=== PATIENT | female | born 1995 | race Caucasian/White ===

== ENCOUNTER 2023-11-13 11:02 | Emergency (ER) | payer BC, SELFPAY ==
[2023-11-13 11:31] VITALS: BP 132/90; PULSE 85; RESP 18; TEMP 36.6; O2SAT 100; BMI 24.3
== END 2023-11-13 12:24 | disposition left against medical advice (07) ==
PROVIDERS: Emergency Provider Emergency Medicine
DX: Z53.21 Procedure and treatment not carried out due to patient leaving prior to being seen by health care provider (principal)

== ENCOUNTER 2024-12-01 18:25 | Emergency (ER) | payer BC, SELFPAY ==
--- OUTSIDE RECORDS SUMMARY | 2024-12-01 18:28 | XMS_ITS | Encounter Summary ---
Author Organization [facility] Address [address] [place] [address] Care Team Providers Care It Operations Analyst Name Role Phone Monika Escobar PA-C Primary Care Provider Davida Triana MD Unavailable [phone] Monika High PA-C Unavailable [phone] Monika Escobar PA-C Unavailable Chris Denise MD Unavailable [phone] Reason for Visit * Reason Onset Date Comments Panel Management 10/15/2024 Encounter Details Date Type Department Care Team (Late Contact Info) Description 10/15/2024 Telephone [facility] [address] [place] [address] Monika Escobar PA-C [address] [place] [address] Panel Management Social History Tobacco Use Types Packs/Day Years Used Date Smoking Tobacco: Never Smokeless Tobacco: Never Alcohol Use Standard Drinks/Week Comments Yes 0 (1 standard drink = 0.6 oz pur e alcohol) social, once per month PHQ-2 Answer Date Recorded PHQ-2 Score 1 01/04/2024 Adolescent Education Answer Date Record ed Getting School Help Needed Not on file 04/30 Comments No Sex and Gender Information Value Date Recorded Sex Assigned at Female 05/09/2021 12:24 PM CDT 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 Type of outreach: Sent [employer] message. Questions for provider review: None Teresa Tamayo MA Chart routed to None. documented in this encounter Plan of Treatment Not on file documented as of this encounter Visit Diagnoses Not on filedocumented in this encounter Additional Health Concerns Assessment Noted Time PHQ-9 Depression Total Score: 11 01/02/ 024 4:16 PM CDT documented as of this encounter Care Teams It Operations Analyst Relationship Specialty Start Date End Date Monika Escobar PA-C [address] [place] [address] PCP - General Family Medicine 05/30/21 Davida Triana MD [address] [place] [address] Referring Physician supply controller 06/15/21 Monika High PA-C [address] [place] [address] Physician Water Filter Cleaner Dermatology 06/15/21 Monika Escobar PA-C [address] [place] [address] Assigned PCP 05/20/21 Chris Denise MD [address] [address] Assigned OBGYN Provider 08/07/24 documented as of this encounter
--- OUTSIDE RECORDS SUMMARY | 2024-12-01 18:28 | XMS_ITS | Encounter Summary ---
Author Organization [facility] Address [address] [place] [address] Care Team Providers Care Gps Navigation Installer Name Role Phone Monika Escobar PA-C Primary Care Provider Davida Triana MD Unavailable [phone] Monika High PA-C Unavailable [phone] Monika Escobar PA-C Unavailable Davida Triana MD Unavailable [phone] Monika High PA-C Unavailable Kylie Liu MD Unavailable Chris Denise MD Unavailable [phone] Encounter Details Date Type Department Care Team (Late st Contact Info) Description 08/14/2022 MyC Medical Advice [facility] [address] [place] [address] Monika Escobar PA-C [address] [place] [address] Social History Tobacco Use Types Packs/Day Years Used Date Smoking Tobacco: Never Smokeless Tobacco: Never Alcohol Use Standard Drinks/Week Comments Yes 0 (1 standard drink = 0.6 oz pur e alcohol) social, once per month PHQ-2 Answer Date Recorded PHQ-2 Score 1 01/13/2022 Comments No Sex and Gender Information Value Date Recorded Sex Assigned at Female 05/09/2021 12:24 PM CDT Legal Sex Female 3:37 AM MOVE COORDINATOR Gender Identity Female 05/09/2021 12:24 PM CDT Sexual Orientation Straight 05/09/2021 12 :24 PM CDT documented as of this encounter Plan of Treatment Not on file documented as of this encounter Visit Diagnoses Not on filedocumented in this encounter Additional Health Concerns Assessment Noted Time PHQ-9 Depression Total Score: 6 01/14/20 22 8:43 AM CDT documented as of this encounter Care Teams Gps Navigation Installer Relationship Specialty Start Date End Date Monika Escobar PA-C [address] [place] [address] PCP - General Family Medicine 05/30/21 Davida Triana MD [address] [place], [place] [address] Referring Physician gui developer 06/15/21 Monika High PA-C [address] [place] [address] Physician Tow Truck Driver Dermatology 06/15/21 Monika Escobar PA-C [address] [place] [address] Assigned PCP 05/20/21 Davida Triana MD [address] [place], [place] [address] Assigned OBGYN Provider 06/19/2112/15/ 3 Monika High PA-C [address] [place] [address] Assigned Surgical Provider 09/18/21 Kylie Liu MD [address] [address] Assigned OBGYN Provider 03/07/24 Chris Denise MD [address] [address] Assigned OBGYN Provider 08/07/24 documented as of this encounter
--- OUTSIDE RECORDS SUMMARY | 2024-12-01 18:28 | XMS_ITS | Encounter Summary ---
Author Organization [facility] Address [address] [place] [address] Care Team Providers Care Assistant General Manager Name Role Phone Monika Escobar PA-C Primary Care Provider [phone] Davida Triana MD Unavailable [phone] Monika High PA-C Unavailable [phone] Monika Escobar PA-C Unavailable [phone] Davida Triana MD Unavailable [phone] Monika High PA-C Unavailable [phone] Kylie Liu MD Unavailable [phone] Chris Denise MD Unavailable [phone] Encounter Details Date Type Department Care Team (Late st Contact Info) Description 01/20/2022 MyC Medical Advice [address] [address] Laurie Maynard MA Social History Tobacco Use Types Packs/Day Years [...] PM CDT 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 No / Unsure 01/11/2022 10:47 AM CDT documented as of this encounter Plan of Treatment Not on file documented as of this encounter Visit Diagnoses Not on filedocumented in this encounter Additional Health Concerns Assessment Noted Time PHQ-9 Depression Total Score: 6 01/14/20 22 8:43 AM CDT documented as of this encounter Care Teams Assistant General Manager Relationship Specialty Start Date End Date Monika Escobar PA-C [address] [place] [address] PCP - General Family Medicine 05/30/21 Davida Triana MD [address] [place] [address] Referring Physician underwater hunter trapper 06/15/21 Monika High PA-C [address] [place] [address] Physician Air Brush Decorator Dermatology 06/15/21 Monika Escobar PA-C [address] [place] [address] Assigned PCP 05/20/21 Davida Triana MD [address] [place] [address] Assigned OBGYN Provider 06/19/21 6/2/2 3 Monika High PA-C [address] [place] [address] Assigned Surgical Provider 09/18/21 Kylie Liu MD [address] [address] Assigned OBGYN Provider 03/07/24 Chris Denise MD [address] [address] Assigned OBGYN Provider 08/07/24 documented as of this encounter
--- OUTSIDE RECORDS SUMMARY | 2024-12-01 18:28 | XMS_ITS | Encounter Summary ---
Author Organization [facility] Address [address] [place] [address] Care Team Providers Care Television Engineer Name Role Phone Monika Escobar PA-C Primary Care Provider Davida Triana MD Unavailable [phone] Monika High PA-C Unavailable [phone] Monika Escobar PA-C Unavailable [phone] Chris Denise MD Unavailable [phone] Encounter Details Date Type Department Care Team (Late st Contact Info) Description 10/15/2024 [facility] [address] [address] Teresa Tamayo MA Social History Tobacco Use Types Packs/Day [...] PM CDT 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 Sex Female 3:37 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 Gender Identity Female 05/09/2021 12:24 PM CDT Sexual Orientation Straight 05/09/2021 12 :24 PM CDT documented as of this encounter Plan of Treatment Not on file documented as of this encounter Visit Diagnoses Not on filedocumented in this encounter Additional Health Concerns Assessment Noted Time PHQ-9 Depression Total Score: 11 01/02/ 024 4:16 PM CDT documented as of this encounter Care Teams Television Engineer Relationship Specialty Start Date End Date Monika Escobar PA-C [address] [place] [address] PCP - General Family Medicine 05/30/21 Davida Triana MD [address] [place] [address] Referring Physician machine bobbin winder 06/15/21 Monika High PA-C [address] [place] [address] Physician Personal Counselor Dermatology 06/15/21 Monika Escobar PA-C [address] [place] [address] Assigned PCP 05/20/21 Chris Denise MD [address] [address] Assigned OBGYN Provider 08/07/24 documented as of this encounter
--- OUTSIDE RECORDS SUMMARY | 2024-12-01 18:28 | XMS_ITS | Encounter Summary ---
Author Organization [facility] Address [address] [place] [address] Care Team Providers Care Launch Manager Name Role Phone Monika Escobar PA-C Primary Care Provider [phone] Davida Triana MD Unavailable [phone] Monika High PA-C Unavailable Monika Escobar PA-C Unavailable Davida Triana MD Unavailable [phone] Monika High PA-C Unavailable Kylie Liu MD Unavailable Chris Denise MD Unavailable [phone] Reason for Visit * Reason Onset Date Comments Panel Management 01/20/2022 Encounter Details Date Type Department Care Team (Late st Contact Info) Description 01/20/2022 Telephone [facility] [address] [place] [address] Monika Escobar PA-C [address] [place] [address] Panel Management Social History Tobacco [...] PM CDT Legal Sex Female 3:37 AM BACK END ENGINEER Gender Identity Female 05/09/2021 12:24 PM CDT Sexual Orientation Straight 05/09/2021 12 :24 PM CDT COVID-19 Exposure Response Date Recorded In the last 10 days, have yo u been in contact with someone who was confirmed or suspected to have Coronavirus/COVID-19? No / Unsure 03/30/2023 8:49 AM CDT documented as of this encounter Miscellaneous Notes * Telephone Encounter - Laurie Maynard MA - 07/11/2022 9:04 AM BACK END ENGINEER Patient Quality Outreach Patient is due for the following: Asthma - ACT needed and AAP Cervical Cancer Screening - PAP Needed Physical Preventive Adult Physical, - never done Chlamydia Screening Topic Date Due ??? COVID-19 Vaccine (2 - Booster for Berhane series) 03/10/2021 ??? Flu Vaccine (1) 03/16/2022 Next Steps: Schedule a office visit for asthma Adult Preventative Type of outreach: Sent letter. Next Steps: Reach out within 90 days via Letter. Max number of attempts reached: Yes. Will try again in 90 days if patient still on fail list. Questions for provider review: None Laurie Maynard MA END ENGINEER * Telephone Encounter - Laurie Maynard MA - 02/22/2022 2:47 PM CDT Patient Quality Outreach Patient is due for the following: Asthma - ACT needed and AAP Cervical Cancer Screening - PAP Needed Physical Preventive Adult Physical, - Due after never done Chlamydia Screening Topic Date Due ??? COVID-19 Vaccine (2 - Booster for Berhane series) 03/10/2021 Next Steps: Schedule a office visit for asthma Adult Preventative Type of outreach: Sent letter. Next Steps: Reach out within 90 days via Letter. Max number of attempts reached: Yes. Will try again in 90 days if patient still on fail list. Questions for provider review: None Laurie Maynard MA * Telephone Encounter - Laurie Maynard MA - 01/20/2022 10:48 AM CDT Patient Quality Outreach Patient is due for the following: Asthma - ACT needed and AAP Cervical Cancer Screening - PAP Needed Physical - Due after never done Chlamydia Immunizations - Covid NEXT STEPS: Schedule a office visit for asthma yearly physical Type of outreach: Sent [employer] message. Questions for provider review: None Laurie Maynard MA documented in this encounter Plan of Treatment Not on file documented as of this encounter Visit Diagnoses Not on filedocumented in this encounter Additional Health Concerns Assessment Noted Time PHQ-9 Depression Total Score: 6 01/14/20 22 8:43 AM CDT documented as of this encounter Care Teams Launch Manager Relationship Specialty Start Date End Date Monika Escobar PA-C [address] [place] [address] PCP - General Family Medicine 05/30/21 Davida Triana MD [address] [place] [address] Referring Physician blueprint assembler 06/15/21 Monika High PA-C [address] [place] [address] Physician Keypunch Operator Dermatology 06/15/21 Monika Escobar PA-C [address] [place] [address] Assigned PCP 05/20/21 Davida Triana MD [address] [place] [address] Assigned OBGYN Provider 06/19/21 3 Monika High PA-C [address] [place] [address] Assigned Surgical Provider 09/18/21 Kylie Liu MD [address] [address] Assigned OBGYN Provider 03/07/24 Chris Denise MD [address] [address] Assigned OBGYN Provider 08/07/24 documented as of this encounter
--- OUTSIDE RECORDS SUMMARY | 2024-12-01 18:28 | XMS_ITS | Encounter Summary ---
Author Organization [facility] Address [address] [place] [address]. [place] [address] Care Team Providers Care Supervisor Drying Name Role Phone Monika Escobar PA-C Primary Care Provider [phone] Davida Triana MD Unavailable Monika High PA-C Unavailable Monika Escobar PA-C Unavailable [phone] Davida Triana MD Unavailable Monika High PA-C Unavailable Kylie Liu MD Unavailable Chris Denise MD Unavailable [phone] Reason for Visit * Reason Comments Medication Refill Encounter Details Date Type Department Care Team (Late st Contact Info) Description 05/03/2022 Refill [facility] [place] [address] [place] [id number] Davida Triana MD [address] [place] [address] Medication Refill Social History Tobacco Use Types Packs/Day Years [...] PM CDT 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 Jasmine Holcomb RN documented in this encounter Plan of Treatment Not on file documented as of this encounter Visit Diagnoses Diagnosis Acne, unspecified acne type PMS (premenstrual syndrome) Premenstrual tension syndromes documented in this encounter Additional Health Concerns Assessment Noted Time PHQ-9 Depression Total Score: 6 01/14/20 22 8:43 AM CDT documented as of this encounter Care Teams Supervisor Drying Relationship Specialty Start Date End Date Monika Escobar PA-C [address] [place] [address] PCP - General Family Medicine 05/30/21 Davida Triana MD [address] [place] [address] Referring Physician insurance sales professional 06/15/21 Monika High PA-C [address] [place] [address] Physician Planer Feeder Dermatology 06/15/21 Monika Escobar PA-C [address] [place] [address] Assigned PCP 05/20/21 Davida Triana MD [address] [place] [address] Assigned OBGYN Provider 06/19/2112/15/ 3 Monika High PA-C [address] [place] [address] Assigned Surgical Provider 09/18/21 Kylie Liu MD [address] [address] Assigned OBGYN Provider 03/07/24 Chris Denise MD [address] [address] Assigned OBGYN Provider 08/07/24 documented as of this encounter
--- OUTSIDE RECORDS SUMMARY | 2024-12-01 18:28 | XMS_ITS | Clinical Summary ---
Author Organization [facility] Address [address] [place] [address] Care Team Providers Care Vp Of Marketing Name Role Phone Monika Escobar PA-C Primary Care Provider Davida Triana MD Unavailable [phone] Monika High PA-C Unavailable [phone] Monika Escobar PA-C Unavailable [phone] Chris Denise MD Unavailable [phone] Allergies No known active allergies Medications SUMAtriptan (IMITREX STATDOSE) 6 MG/0.5ML pen injector kit Inject 6 mg Subcutaneous at onset of headache for migraine Active tretinoin (RETIN-A) 0.025 % external creamIndications: Acne vulgaris Apply a pea size to entire face QD 45 g 11 09/14/19 22 Active Additional Information Patient not taking.Reported on 08/04/2024 albuterol (PROAIR HFA/PROVENTIL HFA/VENTOLIN HFA) 108 (90 Base) MCG/ACT inhalerIndication s:Mild intermittent asthma without complication Inhale 2 puffs into the lungs every 6 hours 18 g 1 11/22/19 22 Active SUMAtriptan (IMITREX) 100 MG tablet Take 100 mg by mouth as needed 11/04/19 22 Active ampicillin (PRINCIPEN) 500 MG capsuleIndication s:Acne vulgaris 1 cap po bid 60 capsule 1 04/11/20 22 Active Additional Information Patient not taking.Reported on 08/04/2024 spironolactone (ALDACTONE) 50 MG tabletIndications :Acne vulgaris 1 tab po daily 90 tablet 3 04/11/20 22 Active Additional Information Patient not taking.Reported on 08/04/2024 AIMOVIG 140 MG/ML injection 11/14/19 23 Active ketoconazole (NIZORAL) 2 % external creamIndications: Rash and nonspecific skin eruption Apply topically daily Apply to affected areas on abdomen, back, and upper chest. Apply for 1-3 weeks, until lesions have resolved. 60 g 12/09/19 23 Active Additional Information Patient not taking.Reported on 08/04/2024 spironolactone (ALDACTONE) 100 MG tabletIndications :Acne vulgaris 1 tab po daily 90 tablet 1 12/21/19 23 Active Additional Information Patient not taking.Reported on 08/04/2024 albuterol (PROVENTIL) (2.5 MG/3ML) 0.083% neb solution Take 1 vial (2.5 mg) by nebulization every 6 hours as needed for shortness of breath or wheezing 75 mL 03/15/20 23 Active drospirenone-ethi nyl estradiol (VESTURA) 3-0.02 MG tabletIndications :Acne, unspecified acne type,PMS (premenstrual syndrome),Encount er for surveillance of contraceptive pills Take 1 tablet by mouth daily 84 tablet 3 01/04/20 24 Active FLUoxetine (PROZAC) 20 MG capsuleIndication s:ABHINAV (generalized anxiety disorder),Current mild episode of major depressive disorder without prior episode Take 3 capsules (60 mg) by mouth daily 270 capsule 1 01/04/20 24 Active fluconazole (DIFLUCAN) 150 MG tabletIndications :Yeast infection of the vagina Take 1 tablet now, and take 1 more tablet 3 days later. 2 tablet 08/05/19 25 Active Active Problems Problem Noted Date Diagnosed Date Chronic migraine without aura 01/23/2024 Intractable common migraine without aura 024 ABHINAV (generalized anxiety disorder) 07/18/2023 Papanicolaou smear of cervix with low grade squamous intraepithelial lesion (LGSIL) 12/15/2022 Overview (08/28/2024): 12/08/22 LSIL pap, 26 yo. Plan pap in 1 year. 02/19/24 LSIL pap at age 28. Plan colp due by 05/21/24 08/04/24 COLP- SHANNEN 1. ECC- neg. Plan cotest in 1 year due before 08/04/25 Current mild episode of jossy r depressive disorder without prior episode 11/21/2021 Migraine without aura and wi thout status migrainosus, not intractable 11/21/2021 Overview (12/08/2022): Follows with [facility] neurology Mild intermittent asthma without complication Encounters Date Type Department Care Team Description 10/15/2024 MyC Medical Advice [facility] [address] [place] [address] Teresa Tamayo MA 10/15/2024 Telephone [facility] [address] [place] [address] Monika Escobar, PANoaC Panel Management from Last 3 Months Immunizations Immunization Administration Dates Next Due COVID-19 Vaccine ([place]) 01/13/2021 DTAP (<7y) 12/12/2002, 9,07/07/1998,05/12,02/25/1998 HIB, Unspecified 12/22/1998, 8,05/07/1998,02/25 HPV Quadrivalent 11/20/2013,01/25/2012 Hepatitis A (Vaqta/Havrix)(P eds 12m-18y) 11/20/2013,01/25/2012 Hepatitis B, Peds (Engerix-B/Recombivax HB) 12/22/1998,05/12/1998,02/25/1998 Influenza (IIV3) PF 03/26/2009,06/25/2003 Influenza (prior to 2023) 07/18/2012,04/12/2011 Influenza Vaccine >6 months,quad, PF 04/09/2020, 08/04/2015,07/25/2013 MMR (MMRII) 12/12/2002,12/22/1998 Meningococcal ACWY (Menactra ) 03/03/2010 Meningococcal ACWY (Menveo ) 04/17/2014 Meningococcal B (Bexsero ) 08/04/2015 Poliovirus, inactivated (IPV) 12/12/2002 ,12/22/1998,05/12/1998,02/25 TD,PF 7+ (Tenivac) 08/04/2015 Typhoid IM 07/30/2015 Varicella (Varivax) 02/05/2008,12/22/1998 Family History Medical History Relation Comments Anxiety Disorder Brother Depression Brother Skin Cancer Maternal Grandmother Anxiety Disorder Mother Depression Mother Diabetes Mother Anxiety Disorder Sister Depression Sister Breast Cancer No family hx of Colon Cancer No family hx of Ovarian Cancer No family hx of Relation Status Comments Brother Father Alive Maternal Grandmother Mother Alive Sister Social History Tobacco Use Types Packs/Day Years Used Date Smoking Tobacco: Never Smokeless Tobacco: Never Tobacco Cessation:Counseling Given: No Alcohol Use Standard Drinks/Week Comments Yes 0 [...] PM CDT Legal Sex Female 3:37 AM CERTIFIED PHYSICAL THERAPIST ASSISTANT Gender Identity Female 05/09/2021 12:24 PM CDT Sexual Orientation Straight 05/09/2021 12 :24 PM CDT Last Filed Vital Signs Vital Sign Reading Time Taken Comments Blood Pressure 118/70 08/04/2024 1:55 PM CERTIFIED PHYSICAL THERAPIST ASSISTANT Pulse 107 11/11/2023 2:03 AM CDT Temperature 36.1 C (97 F) 11/10/2023 11:55 PM CDT Respiratory Rate 20 11/10/2023 11:55 PM CDT Oxygen Saturation 100% 11/11/2023 2:13 AM CDT Inhaled Oxygen Concentration - - Weight 70.4 kg (155 lb 4.8 oz) 08/04/2024 1:55 P M CERTIFIED PHYSICAL THERAPIST ASSISTANT Height 165.1 cm (5' 5) 02/19/2024 11:11 AM CDT Body Mass Index 25.84 02/19/2024 11:11 AM CDT Plan of Treatment Health Maintenance Due Date Last Done Comments ASTHMA ACTION PLAN 1997 DEPRESSION ACTION PLAN 1997 DTAP/TDAP/TD IMMUNIZATION (6 - Tdap) 08/05/2015 08/04/2015, 12/12/2002, 06/23/1999, Additional history exists HEPATITIS C SCREENING 12/19/2015 Pneumococcal Vaccine: Pediat rics (0 to 5 Years) and At-Risk Patients (6 to 49 Years) (1 of 2 - PCV) 2016 ANNUAL REVIEW OF HM ORDERS 08/21/2023 08/21/2022, COVID-19 Vaccine (2 - 2023-2 5 season) 2024 01/13/2021 ASTHMA CONTROL TEST 07/05/2024 01/04/2024, 12/08/2022, 08/21/2022 PHQ-9 07/05/2024 01/04/2024, 09/2023, 12/08/2022, Additional history exists DEPRESSION 12 MO INDEX REPEA T PHQ-9 11/03/2024 01/04/2024, 07/18/2023, 12/08/2022, Additional history exists YEARLY PREVENTIVE VISIT 02/18/2025 02/19/2024, 12/08 INFLUENZA VACCINE (Season Ended) 2025 04/09/2020, 08/04/2015, 07/25/2013, Additional history exists HPV FOLLOW-UP 08/04/2025 PAP FOLLOW-UP 08/04/2025 02/19/2024, 12/08/2022 ADVANCE CARE PLANNING 12/09/2027 12/08/2022 ZOSTER IMMUNIZATION (1 of 2) 12/19/2047 HEPATITIS B IMMUNIZATION Completed 999, 05/12/1998, 02/25/1998 HPV IMMUNIZATION Completed 11/20/2013, 01/25/2012 MENINGITIS IMMUNIZATION Completed 04/17/2014, 03/03 HIV SCREENING Completed 08/21/2022 CHLAMYDIA SCREENING Discontinued 02/19/2024, 08/21/2022, 08/21/2022 PAP Discontinued 02/19/2024, 12/08/2022 Procedures Procedure Name Priority Date/Time Associated Diagnosis Comments GYNECOLOGIC CYTOLOGY Routine 02/19/2024 11:50 AM CDT Papanicolaou smear of cervix with low grade squamous intraepithelial lesion (LGSIL) CHLAMYDIA TRACHOMATIS PCR Routine 02/19/2024 11:50 AM CDT Routine screening for STI (sexually transmitted infection) from Last 3 Months or Most Recently Relevant to Health Maintenance Results * (ABNORMAL) Pap Screen Reflex to HPV if ASCUS - Recommended Age 25 - 29 Years (02/19/2024 11:50 AM CDT) Interpretation Low-grade squamous intraepithelial lesion (LSIL) encompassing HPV/mild dysplasia/CIN1(A) 02/26/2024 10:55 AM CDT [facility] Comment Papanicolaou Test Limitations: Cervical cytology is a screening test with limited sensitivity, and regular screening is critical for cancer prevention. Pap tests are primarily effective for the diagnosis/prevent ion of squamous cell carcinoma, not adenocarcinoma or other cancers. 02/26/2024 10:55 AM CDT LABORATORY Specimen Adequacy Satisfactory for evaluation, endocervical/cash sformation zone component present 02/26/2024 10:55 AM CDT [facility] Clinical Information none 02/26/2024 10:55 AM CDT [facility] LMP/Menopause Date 02/15/2024 02/26/2024 10:55 AM CDT [facility] Reflex Testing Yes if ASCUS 02/26/20 24 10:55 AM CDT [facility] Previous Abnormal? No 02/26/2024 10:55 AM CDT [facility] Performing Labs The technical component of this testing was completed at [facility]. Stain controls for all stains resulted within this report have been reviewed and show appropriate reactivity. 02/26/2024 10:55 AM CDT [facility] Brushing ENDOCERVICAL STRUCTURE / Unknown Non-blood Collection / Unknown 02/19/2024 11:50 AM CDT 02/19/2024 11:53 AM CDT us Kylie Liu MD LAB - STEPHEN AP Final Res ult [facility] [address] Lab (1st floor, no room number) [place] [address], [facility] Specialty Lab [address] [facility], [address] [place] [address] * CHLAMYDIA TRACHOMATIS PCR (02/19/2024 11:50 AM CDT) Chlamydia trachomatis Negative Negative 02/20/2024 11:54 AM CDT [facility] Comment:A negative result by construction project assistant mediated amplification does not preclude the presence of C. trachomatis infection because results are dependent on proper and adequate collection, absence of inhibitors and sufficient rRNA to be detected. Swab CERVIX UTERI STRUCTURE / Unknown Non-blood Collection / Unknown 02/19/2024 11:50 AM CDT 02/19/2024 11:53 AM CDT Kylie Liu MD LAB - MICRO GENERAL ORDER MARIE Final Result [facility] Inf. Diseases Diag. Lab [address] [facility], [address] [place] [address], [facility] from Last 3 Months or Most Recently Relevant to Health Maintenance Insurance BLUE PLUS BLUE PLUS Care Teams Vp Of Marketing Relationship Specialty Start Date End Date Monika Escobar PA-C [address] [place], [place] [id number] PCP - General Family Medicine 05/30/21 Davida Triana MD [address] [place] [address] Referring Physician metal fabrication supervisor 06/15/21 Monika High PA-C [address] [place] [address] [id number] Physician Research Nutritionist Dermatology 06/15/21 Monika Escobar PA-C [address] [place], [place] [id number] Assigned PCP 05/20/21 Chris Denise MD [address] 289[address] Assigned OBGYN Provider 08/07/24
--- OUTSIDE RECORDS SUMMARY | 2024-12-01 18:28 | XMS_ITS | Encounter Summary ---
Author Organization [facility] Address [address] [place] [id number] Care Team Providers Care Maid Cleaning Cooking Name Role Phone Monika Escobar PA-C Primary Care Provider Davida Triana MD Unavailable [phone] Monika High PA-C Unavailable Monika Escobar PA-C Unavailable [phone] Monika High PA-C Unavailable Kylie Liu MD Unavailable [phone] Chris Denise MD Unavailable [phone] Reason for Visit * Reason Onset Date Comments Refill Request 12/20/2022 spironolactone ( ALDACTONE) 100 MG tablet Encounter Details Date Type Department Care Team (Late st Contact Info) Description 12/20/2022 Refill M [facility] [address] [address] Mnoika High PA-C [address] [place] [address] Refill Request (spironolactone (ALDACTONE) 100 MG tablet) Social History Tobacco Use Types Packs/Day Years Used Date Smoking Tobacco: Never Smokeless Tobacco: Never Alcohol Use Standard Drinks/Week Comments Yes 0 (1 standard drink = 0.6 oz pur e alcohol) social, once per month PHQ-2 Answer Date Recorded PHQ-2 Score 2 12/08/2022 Comments No Sex and Gender Information Value Date Recorded Sex Assigned at Female 05/09/2021 12:24 PM CDT Legal Sex Female 3:37 AM OFFLINE CUTTER Gender Identity Female 05/09/2021 12:24 PM CDT Sexual Orientation Straight 05/09/2021 12 :24 PM CDT COVID-19 Exposure Response Date Recorded In the last 10 days, have yo u been in contact with someone who was confirmed or suspected to have Coronavirus/COVID-19? No / Unsure 12/08/2022 8:12 AM CDT documented as of this encounter Miscellaneous Notes * Telephone Encounter - Monika Escobar PA-C - 12/20/2022 3:27 PM CDT Follows with dermatology, will send there. Monika Escobar PA-C documented in this encounter Plan of Treatment Not on file documented as of this encounter Visit Diagnoses Diagnosis Acne vulgaris Other acne documented in this encounter Additional Health Concerns Assessment Noted Time PHQ-9 Depression Total Score: 9 12/09/19 23 8:37 AM CDT documented as of this encounter Care Teams Maid Cleaning Cooking Relationship Specialty Start Date End Date Monika Escobar PA-C [address] [place] [address] PCP - General Family Medicine 05/30/21 Davida Triana MD [address] [address] Referring Physician apprenticeship consultant 06/15/21 Monika High PA-C [address] [place] [address] Physician Mechanical Meter Tester Dermatology 06/15/21 Monika Escobar PA-C [address] [place] [address] Assigned PCP 05/20/21 Monika High PA-C [address] [place] [address] Assigned Surgical Provider 09/18/21 Kylie Liu MD [address] [address] Assigned OBGYN Provider 03/07/24 Chris Denise MD [address] [address] Assigned OBGYN Provider 08/07/24 documented as of this encounter
--- OUTSIDE RECORDS SUMMARY | 2024-12-01 18:28 | XMS_ITS | Encounter Summary ---
Author Organization [facility] Address [address] [place] [address] Care Team Providers Care Cigarette Maker Name Role Phone Monika Escobar PA-C Primary Care Provider Davida Triana MD Unavailable [phone] Monika High PA-C Unavailable [phone] Monika Escobar PA-C Unavailable Kylie Liu MD Unavailable [phone] Chris Denise MD Unavailable [phone] Encounter Details Date Type Department Care Team (Late st Contact Info) Description 08/04/2024 MyC Medical Advice [facility] [place] [address] [place] [address] Chris Denise MD [address] [place] [address] Yeast infection of the vagina (Primary Dx) Social History Tobacco Use Types Packs/Day Years [...] PM CDT Legal Sex Female 3:37 AM FIELD SPEC Gender Identity Female 05/09/2021 12:24 PM CDT Sexual Orientation Straight 05/09/2021 12 :24 PM CDT documented as of this encounter Miscellaneous Notes * Telephone Encounter - Marly Nolan RN - 08/05/2024 1:17 PM CST Pt advised via my chart. Devika Nolan RN D SPEC * Telephone Encounter - Chris Denise MD - 08/05/2024 1:09 PM CST Advise Pt that I sent Rx Diflucan to her [facility] in [place]. If her sx's persist 1 week afterthe 2nd dose, then she will need an appt to see what is going on. D SPEC * Telephone Encounter - Marly Nolan RN - 08/05/2024 10:44 AM FIELD SPEC Please address the my chart message. Pt believes that she has a yeast infection. Finished monistat 7 day last Sunday and is still having sx. Pt was in for a colp yesterday. Please advise. Devika Nolan RN D SPEC documented in this encounter Plan of Treatment Not on file documented as of this encounter Visit Diagnoses Diagnosis Yeast infection of the vagina- Primary Candidiasis of vulva and vagina documented in this encounter Additional Health Concerns Assessment Noted Time PHQ-9 Depression Total Score: 11 01/02/ 024 4:16 PM CDT documented as of this encounter Care Teams Cigarette Maker Relationship Specialty Start Date End Date Monika Escobar PA-C [address] [place] [address] PCP - General Family Medicine 05/30/21 Davida Triana MD [address] [place] [address] Referring Physician manufacturing engineering director 06/15/21 Monika High PA-C [address] [place] [address] Physician Senior It Project Manager Dermatology 06/15/21 Monika Escobar PA-C [address] [place], [place] [phone] Assigned PCP 05/20/21 Kylie Liu MD [address] [address] Assigned OBGYN Provider 03/07/24 Chris Denise MD [address] [address] Assigned OBGYN Provider 08/07/24 documented as of this encounter
--- OUTSIDE RECORDS SUMMARY | 2024-12-01 18:28 | XMS_ITS | Encounter Summary ---
Author Organization [facility] Address [address] [place] [address] Care Team Providers Care Escort Patients Name Role Phone Monika Escobar PA-C Primary Care Provider [phone] Davida Triana MD Unavailable [phone] Monika High PA-C Unavailable [phone] Monika Escobar PA-C Unavailable [phone] Davida Triana MD Unavailable [phone] Monika High PA-C Unavailable [phone] Kylie Liu MD Unavailable Chris Denise MD Unavailable [phone] Encounter Details Date Type Department Care Team (Late st Contact Info) Description 01/13/2022 MyC Medical Advice [address] [address] Bernard Alaniz MA Social History Tobacco Use Types Packs/Day [...] PM CDT Legal Sex Female 3:37 AM ROLLER SKATER Gender Identity Female 05/09/2021 12:24 PM CDT [...] documented as of this encounter Care Teams Escort Patients Relationship Specialty Start Date End Date Monika Escobar PA-C [address] [place] [address] PCP - General Family Medicine 05/30/21 Davida Triana MD [address] [place] [address] Referring Physician geochemistry teacher 06/15/21 Monika High PA-C [address] [place] [address] Physician Allergist/Immunologist Dermatology 06/15/21 Monika Escobar PA-C [address] [place] [address] Assigned PCP 05/20/21 Davida Triana MD [address] [place] [address] Assigned OBGYN Provider 06/19/21 6/2/2 3 Monika High PA-C [address] [place] [address] Assigned Surgical Provider 09/18/21 Kylie Liu MD [address] [address] Assigned OBGYN Provider 03/07/24 Chris Denise MD [address] [address] Assigned OBGYN Provider 08/07/24 documented as of this encounter
--- OUTSIDE RECORDS SUMMARY | 2024-12-01 18:29 | XMS_ITS | Clinical Summary ---
Author Organization [facility] Address [address], [place] [address] Care Team Providers Care Security Installation Technician Name Role Phone Saray Reyes MD Primary Care Provider [phone] Source Comments You are receiving this document as you are listed as the primary care provider,follow-up provider, or the patient has been referred to you for consultation.This is in compliance with the Medicare and[facility] EHR Incentive Program,which states Providers who transition their patient to another setting of careor provider of care or refers their patient to another provider of care shouldprovide summary care record for each transition of care or referral. [employer] Allergies No known active allergies Medications fluoxetine (AKA PROZAC) 20 MG tabletIndicatio ns:MIKAYLA HARRIS Fri Jul 30, 2015 2:20 PM Received from: External Pharmacy Indications: PN: MIKAYLA HARRIS SunJul 30, 2015 2:20 PM Received from: External Pharmacy 5 07/13/2015 Active SUMAtriptan (IMITREX) 100 MG tablet 01/09/2021 Active gabapentin (NEURONTIN) 300 MG capsule TAKE 1 CAPSULE BY MOUTH 2 TIMES A DAY 11/02/2020 Active eletriptan (RELPAX) 40 MG tablet 1 TABLET BY MOUTH AT ONSET OF HEADACHE, MAY REPEAT NEEDED IN 2HRS, MAX 2TABS/DAY AND 10DAYS/MONTH 12/04/2020 Active cephalexin (KEFLEX) 500 MG capsule TAKE 1 CAPSULE BY MOUTH 3 TIMES DAILY FOR 10 DAYS. 01/10/2021 Active naproxen (NAPROSYN) 500 MG tablet TAKE 1 TAB BY MOUTH AT ONSET OF HEADACHE NEEDED, TAKE WITH TRIPTAN OR BY ITSELF, MAX OF 2 PER DAY 11/15/2020 Active Norelgestromin- Eth Estradiol (XULANE) 150-35 MCG/24HR patch APPLY 1 PATCH EVERY WEEK DIRECTED 11/16/2020 Active Active Problems No known active problems Immunizations Immunization Administration Dates Next Due 4vHPV (Gardasil) 11/20/2013,01/25/2012 DTaP 12/12/2002, 9,07/07/1998,1997,02/25/1998 HepA Ped/Adol (1-18 yrs) 11/20/2013,01/25/2012 HepB Ped/Adol (0-18 yrs) 12/22/1998,05/12/1998,0 02/25/1998 Hib, Unspecified Formulation 12/22/1998, 07/07/1998,05/07/1998,1997 IPV (Polio) 12/12/2002, 9,05/12/1998,1997 Influenza IIV4 (Quadrivalent ) 0.5mL (10898) 07/25/2013 MCV4 (Menactra) 03/03/2010 MCV4 Menveo 2m.+ (two vial) 04/17/2014 MMR 12/12/2002,12/22/1998 Typhoid (Typhim Vi, IM) 07/30/2015 Varicella 02/05/2008,12/22/1998 Social History Tobacco Use Types Packs/Day Years Used Date Smoking Tobacco: Never Smokeless Tobacco: Never Comments No Sex and Gender Information Value Date Recorded Sex Assigned at Not on file Legal Sex Female 4:30 PM MINING CAPTAIN Gender Identity Not on file Sexual Orientation Not on file Last Filed Vital Signs Vital Sign Reading Time Taken Comments Blood Pressure 125/86 01/15/2021 4:17 PM CDT Pulse 119 01/15/2021 4:17 PM CDT Temperature 36.7 C (98.1 F) 01/15/2021 4:17 PM CDT Respiratory Rate 16 01/15/2021 4:17 PM CDT Oxygen Saturation 98% 01/15/2021 4:17 PM CDT Inhaled Oxygen Concentration - - Weight - - Height - - Body Mass Index - - Plan of Treatment Health Maintenance Due Date Last Done Comments Cervical Cancer Screening Due 1997 Hep C Screening (Preventive Services) 1997 DTaP/Tdap/Td Vaccine (6 - Tdap) 2008 12/12/2002, 06/23/1999, 07/07/1998, Additional history exists HIV Screening (Preventive Services) 2013 Adult Preventive Visit 12/19/2015 COVID-19 Vaccine (2 season) 2024 01/13/2021 Influenza Vaccine (Season Ended) 2025 07/25/2013 Zoster/Shingles Vaccine (1 of 2) 12/19/2047 HepB Vaccine Completed 12/22/1998, 04/16, 02/25/1998 Hib Vaccine Completed 12/22/1998, 06/16, 05/07/1998, Additional history exists IPV (Polio) Vaccine Completed 12/12/2002, 12/22/1998, 05/12/1998, Additional history exists Varicella Vaccine Completed 02/05/2008, 12/22/1998 HPV Vaccine Completed 11/20/2013, 01/25/2012 HepA Vaccine Completed 11/20/2013, 01/25/2012 MCV4 Vaccine Completed 04/17/2014, 03/03/2010 Meningococcal B Vaccine Aged Out No l onger eligible based on patient's age to complete this topic Pneumococcal Vaccine Aged Out No long er eligible based on patient's age to complete this topic Insurance [place] [address] Care Teams Security Installation Technician Relationship Specialty [place] [id number] [address] [place] [address] PCP - General 07/22/15
--- OUTSIDE RECORDS SUMMARY | 2024-12-01 18:29 | XMS_ITS | Clinical Summary ---
Author Organization [facility] Address [address] [place] [id number] Care Team Providers Care Woods Manager Name Role Phone Unavailable Primary Care Provider Unavailabl e Allergies No known active allergies Medications FLUoxetine 20 mg tablet TK 1 T PO QD IN THE MORNING 0 Active metoclopramide HCl (REGLAN) 10 mg tablet 0 Active SUMAtriptan (IMITREX) 100 mg tablet 1 Active albuterol HFA (PRO-AIR; VENTOLIN; PROVENTIL) 90 mcg/actuation inhaler INHALE 2 PUFFS INTO THE LUNGS EVERY 6 HOURS 2 Active drospirenone-ethiny l estradioL (Vestura, 28,) 3-0.02 mg tablet Take 1 Tablet by mouth once daily. 2 Active Aimovig Autoinjector 140 mg/mL auto-injector 08/14/19 2 3 Active vit 28/iron fum/folic (multivitamin folic acid 1 mg)Indications:Blee ding in early (HC) Take 1 Tablet by mouth once daily. 30 Tablet 5 Active ondansetron 4 mg disintegrating tabletIndications:S AB (spontaneous ) (HC) Place 2 Tablets (8 mg) on the tongue every 8 hours if needed for Nausea/Vomit ing. 20 Tablet 5 Active Active Problems Problem Noted Date Diagnosed Date Chronic migraine without aura 01/23/2024 ABHINAV (generalized anxiety disorder) 07/18/2023 Papanicolaou smear of cervix with low grade squamous intraepithelial lesion (LGSIL) 12/15/2022 Overview (02/09/2024): 12/08/22 LSIL pap, 26 yo. Plan pap in 1 year. 12/15/2022 MyChart result note sent. 01/02/23 mychart not read. Call attempt. VM box full unable to leave message. Will try again. 01/03/23 advised by phone 12/11/23 appt - canceled 01/08/2024 Reminder MyChart 02/19/24 appt Mild intermittent asthma without complication Comments Yes Encounters Date Type Department Care Team Description 12/01/[address] [facility] [address] [place] [address] Milad Albrecht MD Abdominal Pain 11/28/2024 2:08 AM CDT - 11/28/2024 3:44 AM CDT Emergency [facility] [address] [place] [address] Jamar Olivier MD Early stage of (HC) (Primary Dx); Abdominal cramping Discharge Disposition: Home Self Care 11/28/2024 Travel 11/25/2024 7:51 PM CDT - 11/25/2024 8:45 PM CDT Emergency [facility] [address] [place] [address] Nirmal Ye PA Abdominal cramping (Primary Dx); Early stage of (HC); Left ovarian cyst Discharge Disposition: Home Self Care 11/25/2024 5:10 PM CDT Office Visit [facility] [address] [place] [address] Abdominal Pain/problem (Lower abdominal cramping today. No vaginal bleeding. Is about 6 weeks . ) 11/25/2024 Travel 11/12/2024 1:45 PM CDT Office Visit [facility] [address] [place] [address] Milad Albrecht MD Consult 11/12/2024 Travel 10/16/2024 7:50 AM CDT - 10/16/2024 11:59 PM CDT Hospital Encounter [facility] [address] [facility] [place] [address] , unspecified gestational age (HC) 10/16/[address] [facility] [address] [facility] [place] [address] Shruthi Corona, 10/16/[address] [facility] [address] [facility] [place] [address] Milad Albrecht MD Questions 10/16/[address] [facility] [address] [facility] [place] [address] Milad Albrecht MD Results 10/15/2024 Travel 10/14/2024 7:38 AM CDT - 10/14/2024 11:35 AM CDT Emergency [facility] [address] [facility] [place] [address] Xochitl An, Bleeding in early (HC) (Primary Dx); Threatened (HC) Discharge Disposition: Home Self Care 10/14/2024 Orders Only [address] [place] [address] Shruthi Corona, DO <No scans attached> 10/14/2024 Travel 10/09/2024 Travel from Last 3 Months Social History Tobacco Use Types Packs/Day Years Used Date Smoking Tobacco: Never Smokeless Tobacco: Never Social Connections Answer Date Recorded Do you often feel lonely or isolated from those around you? 0 11/12/2024 Financial Resource Strain Answer Date R ecorded Difficulty of Paying Living Expenses 3 11/12/2024 Difficulty of Paying Living Expenses Not on file 11/12/2024 Food Insecurity Answer Date Recorded Do you worry your food will run out before you are able to buy more? 1 11/12/2024 Transportation Needs Answer Date Record ed Does lack of transportation keep you from medica l appointments? 1 11/12/2024 Does lack of transportation keep you from work, meetings or getting things that you need? 1 11/12/2024 Housing Stability Answer Date Recorded What is your housing situation today? 1 11/12/2024 Interpersonal Safety Answer Date Record ed Are you being hit, kicked, p ushed or yelled at (see row info)? No 11/28/2024 Interpersonal Safety Abuse 12 - 18 Not on file 11/28/2024 Interpersonal Safety Ambulatory Vulnerability No t on file 11/28/2024 Utilities Answer Date Recorded Do you have trouble paying f or utilities (for example, heat, electricity, water, phone)? 1 11/12/2024 Comments Yes Sex and Gender Information Value Date Recorded Sex Assigned at Female 11/25/2024 5:25 PM CDT Legal Sex Female 5:32 PM MANAGER TRANSFER Gender Identity Female 11/25/2024 5:25 PM CDT Sexual Orientation Straight 11/25/2024 5: 25 PM CDT Obstetrics History Para Term AB IAB SAB Ectopic Multiple Livin g Live Births 2 Date Outcome GA Total Labor Labor/2nd/3rd Weight Sex Type Anes PTL Dana A1 A5 Name Clin Current Last Filed Vital Signs Vital Sign Reading Time Taken Comments Blood Pressure 137/85 11/28/2024 2:18 AM CDT Pulse 72 11/28/2024 2:18 AM CDT Temperature 36.9 C (98.5 F) 11/28/2024 2:18 AM CDT Respiratory Rate 20 11/28/2024 2:18 AM CDT Oxygen Saturation 99% 11/28/2024 2:18 AM CDT Inhaled Oxygen Concentration - - Weight 72.9 kg (160 lb 12.8 oz) 11/28/2024 2:14 AM CDT Height 165.1 cm (5' 5) 11/28/2024 2:14 AM CDT Body Mass Index 26.76 11/28/2024 2:14 AM CDT Plan of Treatment Upcoming Encounters Date Type Department Care Team (Late st Contact Info) Description 12/03/2024 3:00 PM CDT Office Visit [address] [phone] Mliad Albrecht MD [address] [place] [address] 12/05/2024 3:00 PM CDT Phone OB Encounter [facility] [address] [facility] [place] [phone] 01/02/2025 2:30 PM CDT OB Encounter [facility] [address] [facility] [place] [address] Chloe Shruthi Couch, DO [address] [facility] [place] [address] Health Maintenance Due Date Last Done Comments Tdap 2008 Depression screening for age 12+ 2009 HPV series for age 9-26 (1 - 3-dose series) 2012 Hepatitis C screening for ag e 18-79 12/19/2015 Tetanus booster 2017 Pap test for age 21-65 2018 BMI (ht and wt on same day) for age 18+ 08/21/2023 08/21/2022, 01/09/2021 COVID-19 vaccine series ( season) 2024 01/13/2021 Influenza Vaccine (Season Ended) 2025 RSV vaccine for adults or (1 - 1-dose 75+ series) 2072 HIV for age 15-65 Completed 08/21/2022 Pneumococcal series for age 6-49 Aged Out No longer eligible b ased on patient's age to complete this topic Procedures Procedure Name Priority Date/Time Associated Diagnosis Comments US OB 1ST TRI SINGLE TA AND TV STAT 11/28/2024 3:16 AM CDT HCG BETA QUANT, STAT 11/28/2024 2:42 AM CDT HEMOGLOBIN STAT 11/28/2024 2:42 AM CDT US OB 1ST TRI SINGLE TA AND TV STAT 11/25/2024 7:14 PM CDT RH(D) TYPE STAT 11/25/2024 5:58 PM CDT CBC WITH AUTO DIFFERENTIAL STAT 11/25/2024 5:58 PM CDT HCG BETA QUANT, STAT 11/25/2024 5:58 PM CDT BASIC METABOLIC PANEL STAT 11/25/2024 5:58 PM CDT CBC WITH AUTO DIFFERENTIAL STAT 11/25/2024 5:58 PM CDT URINALYSIS MICROSCOPIC STAT 11/25/2024 5:47 PM CDT URINE STAT 11/25/2024 5:47 PM CDT UA W/ SEDIMENT EXAM REFLEXED PER CRITERIA STAT 11/25/2024 5:47 PM CDT HCG BETA QUANT, Today 10/16/2024 8:18 AM CDT , unspecified gestational age (HC) GC CHLAMYDIA TRACH PROBE STAT 10/14/2024 11:10 AM CDT TRICHOMONAS, AVILA, AND BACTERIAL VAGINOSIS BY ROSSY STAT 10/14/2024 11:10 AM CDT US OB 1ST TRI SINGLE TA AND TV STAT 10/14/2024 9:51 AM CDT BEDSIDE US STUDY ARCHIVE Routine 10/14/2024 8:28 AM CDT HCG BETA QUANT, STAT 10/14/2024 8:25 AM CDT CBC W PLT NO DIFF STAT 10/14/2024 8:2 5 AM CDT URINALYSIS MICROSCOPIC STAT 10/14/2024 7:51 AM CDT UA W/ SEDIMENT EXAM REFLEXED PER CRITERIA STAT 10/14/2024 7:51 AM CDT LC HIV-1/O/2, 4TH GENERATION Routine 08/21/2022 4:20 PM MANAGER TRANSFER Screen for STD (sexually transmitted disease) from Last 3 Months or Most Recently Relevant to Health Maintenance Results * US OB 1ST TRI SINGLE TA AND TV (11/28/2024 3:16 AM CDT) Only the most recent of3 resultswithin the time period is included. Anatomical Region Laterality Modality Ultrasound 11/28/2024 3:28 AM CDT Impressions 11/28/2024 3:28 AM CDT No significant interval change. Early intrauterine gestational sac without yolk sac or pole visualized. Dictated by Lee Mcadams MD @ 11/28/2024 3:28:06 AM (Electronically Signed) Narrative 11/28/2024 3:28 AM CDT For Patients: As a result of the Cures Act, medical imaging exams and procedure reports are released immediately into your electronic medical record. You may view this report before your referring provider. If you have questions, please contact your health care provider. INDICATION: Abnormal bleeding. TECHNIQUE: Ultrasound OB pelvis transabdominal and transvaginal. Real-time payne-scale imaging of the pelvis was performed. COMPARISON: 11/25/2024. FINDINGS: There is an intrauterine gestational sac. No yolk sac is visualized. The mean gestational sac diameter measures 0.7 cm, corresponding to a gestational age of 5 weeks 2 days. The uterus is unremarkable. Again demonstrated left ovarian cyst. Right ovary is not visualized. There are no suspicious fluid collections noted in the cul-de-sac. Procedure Note Lee Mcadams MD - 11/28/2024 For Patients: As a result of the Cures Act, medical imagingexams and procedure reports are released immediately into your electronicmedical record. You may view this report before your referring provider.If you have questions, please contact your health care provider. INDICATION: Abnormal bleeding. TECHNIQUE: Ultrasound OB pelvis transabdominal and transvaginal. Real-time payne- scaleimaging of the pelvis was performed. COMPARISON: 11/25/2024. FINDINGS: There is an intrauterine gestational sac. No yolk sac is visualized. Themean gestational sac diameter measures 0.7 cm, corresponding to agestational age of 5 weeks 2 days. The uterus is unremarkable. Again demonstrated left ovarian cyst. Rightovary is not visualized. There are no suspicious fluid collections notedin the cul-de-sac. IMPRESSION: No significant interval change. Early intrauterine gestational sac withoutyolk sac or pole visualized. Dictated by Lee Mcadams MD @ 11/28/2024 3:28:06 AM (Electronically Signed) us Jamar Olivier MD US Final Result * HEMOGLOBIN (11/28/2024 2:42 AM CDT) Pathologist [facility] HEMOGLOBIN 13.5 12.0 - 16.0 g/dL 11/28/2024 3:00 AM CDT [facility] MCV 87 80 - 100 fL 11/28/2024 3:00 AM CDT [facility] Blood BLOOD SPECIMEN / Unknown Venipuncture / Unknown 11/28/2024 2:42 AM CDT 11/28/2024 2:58 AM CDT us Jamar Olivier MD HEMATOLOGY Final Result [facility] [address] [place] [address] * HCG BETA QUANT, (11/28/2024 2:42 AM CDT) Only the most recent of4 resultswithin the time period is included. HCG BETA QUANT,PREGNANC Y 9,226 mIU/mL 11/28/2024 3:28 AM CDT [facility] Blood BLOOD SPECIMEN / Unknown Venipuncture / Unknown 11/28/2024 2:42 AM CDT 11/28/2024 2:58 AM CDT Narrative [facility] - 11/28/2024 3:28 AM CDT Expected Value for Healthy Non- premenopausal women <5.3mIU/mL FOR GESTATIONAL ASSESSMENT-See Range Table Below Weeks of gestation hCG mIU/mL 3 weeks gestation (5.8 - 71.2) 4 weeks gestation (9.5 - 750) 5 weeks gestation (217 - 7138) 6 weeks gestation (158 - 31,795) 7 weeks gestation (3,697 - 163,563) 8 weeks gestation (32,065 - 149,571) 9 weeks gestation (63,803 - 151,410) 10 weeks gestation (46,509 - 186,977) 12 weeks gestation (27,832 - 210,612) 14 weeks gestation (13,950 - 62,530) 15 weeks gestation (12,039 - 70,971) 16 weeks gestation (9,040 - 56,451) 17 weeks gestation (8,175 - 55,868) 18 weeks gestation (8,099 - 58,176) Biotin supplements may cause clinically significant interference for this test assay. If interference is suspected, it is strongly recommended that biotin is discontinued for at least one week prior to retesting. us Jamar Olivier MD CHEMISTRY Final Result [facility] [address] [place] [address] * (ABNORMAL) CBC WITH AUTO DIFFERENTIAL (11/25/2024 5:58 PM CDT) WHITE BLOOD COUNT 9.0 4.5 - 11.0 thou/cu mm 11/25/2024 6:11 PM CDT [facility] RED BLOOD COUNT 4.45 4.00 - 5.20 mil/cu mm 11/25/2024 6:11 PM CDT [facility] HEMOGLOBIN 12.9 12.0 - 16.0 g/dL 11/25/2024 6:11 PM T [facility] HEMATOCRIT 38.4 33.0 - 51.0 % 11/25/2024 6:11 PM T [facility] MCV 86 80 - 100 fL 11/25/2024 6:11 PM CDT [facility] MCH 29.0 26.0 - 34.0 pg 11/25/2024 6:11 PM [facility] MCHC 33.6 32.0 - 36.0 g/dL 11/25/2024 6:11 PM [facility] RDW 12.8 11.5 - 15.5 % 11/25/2024 6:11 PM [facility] PLATELET COUNT 282 140 - 440 thou/cu mm 11/25/2024 6:11 PM [facility] MPV 10.6 6.5 - 11.0 fL 11/25/2024 6:11 PM [facility] % NEUT 52.3 % 11/25/2024 6:11 PM [facility] % LYMPH 40.5 % 11/25/2024 6:11 PM [facility] % MONO 6.7 % 11/25/2024 6:11 PM [facility] % EOS 0.3 % 11/25/2024 6:11 PM [facility] % BASO 0.2 % 11/25/2024 6:11 PM [facility] ABSOLUTE NEUTROPHILS 4.7 1.7 - 7.0 thou/cu mm 11/25/2024 6:11 PM [facility] ABSOLUTE LYMPHOCYTES 3.6(H) 0.9 - 2.9 thou/cu mm 11/25/2024 6:11 PM [facility] ABSOLUTE MONOCYTES 0.6 <0.9 thou/cu mm 11/25/2024 6:11 PM [facility] ABSOLUTE EOSINOPHILS 0.0 <0.5 thou/cu mm 11/25/2024 6:11 PM [facility] ABSOLUTE BASOPHILS 0.0 <0.3 thou/cu mm 11/25/2024 6:11 PM [facility] Blood BLOOD SPECIMEN / Unknown Venipuncture / Unknown 11/25/2024 5:58 PM CDT 11/25/2024 6:07 PM T us Nirmal ACUNA HEMATOLOGY Fin al Result [facility] [address] [place] [address] * RH(D) TYPE (11/25/2024 5:58 PM CDT) Pathologist [facility] RH(D) TYPE Negative 11/25/2024 6:23 PM CDT [facility] BLOOD BANK Blood BLOOD SPECIMEN / Unknown Venipuncture / Unknown 11/25/2024 5:58 PM CDT 11/25/2024 6:07 PM CDT Heath Bradley DO BLOOD BANK Final Resul t Performing Organization Address [facility] de Phone Number [facility] BLOOD BANK [address] [place] [address] * (ABNORMAL) BASIC METABOLIC PANEL (11/25/2024 5:58 PM CDT) Pathologist [facility] SODIUM 137 136 - 145 mmol/L 11/25/2024 6:43 PM [facility] POTASSIUM 3.2(L) 3.5 - 5.1 mmol/L 11/25/2024 6:43 PM [facility] CHLORIDE 101 98 - 107 mmol/L 11/25/2024 6:43 PM [facility] CO2,TOTAL 23 22 - 29 mmol/L 11/25/2024 6:43 PM [facility] ANION GAP 13 5 - 18 11/25/2024 6:43 PM [facility] GLUCOSE 87 70 - 99 mg/dL 11/25/2024 6:43 PM [facility] CALCIUM 9.2 8.8 - 10.4 mg/dL 11/25/2024 6:43 PM [facility] Comment: Reference ranges for this test were updated on 05/20/2024 to reflect our healthy population more accurately. Reference range changes are not retroactively applied to results, but previous results using the same methodology can be interpreted in the context of the new reference range. BUN 7 6 - 20 mg/dL 11/25/2024 6:43 PM [facility] CREATININE 0.52 0.50 - 0.90 mg/dL 11/25/2024 6:43 PM CDT [facility] BUN/CREAT RATIO 13 10 - 20 6:43 PM T [facility] eGFR >90 >90 mL/min/1. 73m2 11/25/2024 6:43 PM CDT [facility] Comment:As of 2021, eG FR is calculated by the CKD-EPI creatinine equation without race adjustment. eGFR can be influenced by muscle mass, exercise, and diet. The reported eGFR is an estimation only and is only applicable if the renal function is stable. Blood BLOOD SPECIMEN / Unknown Venipuncture / Unknown 11/25/2024 5:58 PM CDT 11/25/2024 6:07 PM CDT Nirmal ACUNA CHEMISTRY Fin al Result Performing Organization Address [facility] Co de Phone Number [facility] [address] [place] [address] * URINALYSIS MICROSCOPIC (11/25/2024 5:47 PM CDT) Only the most recent of2 resultswithin the time period is included. RBC None Seen 0-2, None Seen /HPF 11/25/2024 6:10 PM CDT [facility] WBC 0-2 0-2, 3-5, None Seen /HPF 11/25/2024 6:10 PM [facility] BACTERIA Few None Seen, Rare, Few Bacteria/ HPF 11/25/2024 6:10 PM CDT [facility] EPITHELIAL CELLS Few None Seen, Few Epi/HPF 11/25/2024 6:10 PM CDT [facility] Urine URINE SPECIMEN / Unknown Non-Blood / Unknown 11/25/2024 5:47 PM CDT 11/25/2024 5:58 PM CDT Nirmal ACUNA URINE Fin al Result Performing Organization Address [facility]/ZIP Co de Phone Number [facility] [address] [place] [address] * (ABNORMAL) UA W/ SEDIMENT EXAM REFLEXED PER CRITERIA (11/25/2024 5:47 PM CDT) Only the most recent of2 resultswithin the time period is included. COLOR Yellow Yellow Color 11/25/2024 6:04 PM [facility] CLARITY Clear Clear Clarity 11/25/2024 6:04 PM [facility] SPECIFIC GRAVITY,URINE 1.025 1.010, 1.015, 1.020, 1.025 11/25/2024 6:04 PM [facility] PH,URINE 6.5 6.0, 7.0, 8.0, 5.5, 6.5, 7.5, 8.5 11/25/2024 6:04 PM [facility] UROBILINOGEN, QUALITATIVE Normal Normal EU/dl 11/25/2024 6:04 PM [facility] PROTEIN, URINE Negative Negative mg/dL 11/25/2024 6:04 PM [facility] GLUCOSE, URINE Negative Negative mg/dL 11/25/2024 6:04 PM [facility] KETONES,URINE Negative Negative mg/dL 11/25/2024 6:04 PM [facility] BILIRUBIN,URI NE Negative Negative 11/25/2024 6:04 PM [facility] OCCULT BLOOD,URINE Small(A) Negative 11/25/2024 6:04 PM [facility] NITRITE Negative Negative 11/25/2024 6:04 PM [facility] LEUKOCYTE ESTERASE Negative Negative 11/25/2024 6:04 PM [facility] Urine URINE SPECIMEN / Unknown Non-Blood / Unknown 11/25/2024 5:47 PM CDT 11/25/2024 5:58 PM CDT us Nirmal Ye PA URINE Fin al Result [facility] [address] [place] [address] * (ABNORMAL) URINE (11/25/2024 5:47 PM CDT) ,URIN E Positive(P ositive) Negative 11/25/2024 6:04 PM CDT [facility] Comment:Is Rh typing necessa ry? Urine URINE SPECIMEN / Unknown Non-Blood / Unknown 11/25/2024 5:47 PM CDT 11/25/2024 5:58 PM CDT us Nirmal Ye PA URINE Fin al Result [facility] [address] [place] [address] * TRICHOMONAS, AVILA, AND BACTERIAL VAGINOSIS BY ROSSY (10/14/2024 11:10 AM CDT) AVILA SPECIES Negative Negative 12:53 PM CDT [facility] AVILA GLABRATA Negative Negative 10/15/2024 12:53 PM CDT [facility] TRICHOMONAS VVA Negative Negative 12:53 PM CDT [facility] BACTERIAL VAGINOSIS Negative Negative 10/15/2024 12:53 PM CDT [facility] Other VAGINAL SWAB / Unknown Non-Blood / Unknown 10/14/2024 11:10 AM CDT 10/14/2024 11:15 AM CDT us Xochitl An DO MICROBIOLOGY Final Res ult [facility] [address] [place] [address], [place] * GC CHLAMYDIA TRACH PROBE (10/14/2024 11:10 AM CDT) CHLAMYDIA PROBE Negative 1:11 PM CDT [facility] N GONORRHOEAE PROBE Negative 10/15/2024 1:11 PM CDT [facility] Other ENDOCERVICAL CYTOLOGIC MATERIAL / Unknown Non-Blood / Unknown 10/14/2024 11:10 AM CDT 10/14/2024 11:15 AM CDT us Xochitl An DO MICROBIOLOGY Final Res ult [facility] [address] [place] [address], * CBC W PLT NO DIFF (10/14/2024 8:25 AM CDT) WHITE BLOOD COUNT 4.9 4.5 - 11.0 thou/cu mm 10/14/2024 8:34 AM [facility] RED BLOOD COUNT 4.93 4.00 - 5.20 mil/cu mm 10/14/2024 8:34 AM [facility] HEMOGLOBIN 14.1 12.0 - 16.0 g/dL 10/14/2024 8:34 AM [facility] HEMATOCRIT 43.3 33.0 - 51.0 % 10/14/2024 8:34 AM [facility] MCV 88 80 - 100 fL 10/14/2024 8:34 AM [facility] MCH 28.6 26.0 - 34.0 pg 10/14/2024 8:34 AM [facility] MCHC 32.6 32.0 - 36.0 g/dL 10/14/2024 8:34 AM [facility] RDW 13.1 11.5 - 15.5 % 10/14/2024 8:34 AM [facility] PLATELET COUNT 238 140 - 440 thou/cu mm 10/14/2024 8:34 AM [facility] MPV 10.5 6.5 - 11.0 fL 10/14/2024 8:34 AM [facility] Blood BLOOD SPECIMEN / Unknown Butterfly / Unknown 10/14/2024 8:25 AM CDT 10/14/2024 8:30 AM CDT us Xochitl Stoutvianney DO HEMATOLOGY Final Res ult [facility] [address] [facility] [place] [address] * LC HIV-1/O/2, 4TH GENERATION (08/21/2022 4:20 PM MANAGER TRANSFER) [facility] HIV Scr 4th Gen Non Reactive Non Reactive 08/23/2022 2:08 PM MANAGER TRANSFER [facility] Comment: HIV Negative HIV-1/HIV-2 antibodies and HIV-1 p24 antigen were NOT detected. There is no laboratory evidence of HIV infection. Blood BLOOD SPECIMEN / Unknown Venipuncture / Unknown 08/21/2022 4:20 PM MANAGER TRANSFER 08/21/2022 4:24 PM MANAGER TRANSFER Narrative [facility] - 08/23/2022 2:08 PM MANAGER TRANSFER Performed at: [address] [place] [id number] Carry All Driver: Gopal Lassiter MD, Phone: [phone] us Karly Stovall [facility] Final Res ult [facility] ([facility]) [address] [place] [address], from Last 3 Months or Most Recently Relevant to Health Maintenance Insurance [facility] [employer]
--- OUTSIDE RECORDS SUMMARY | 2024-12-01 18:29 | XMS_ITS | Encounter Summary ---
Author Organization [facility] Address [address] [place] [address] Care Team Providers Care Credit Card Clerk Name Role Phone No Ref-Primary, Physician Primary Care Provider [facility] Primary Ca re Provider Monika Escobar PA-C Primary Care Provider [phone] Davida Triana MD Unavailable [phone] Monika High PA-C Unavailable [phone] Monika Escobar PA-C Unavailable [phone] Davida Triana MD Unavailable [phone] Monika High PA-C Unavailable [phone] Kylie Liu MD Unavailable [phone] Chris Denise MD Unavailable [phone] Encounter Details Date Type Department Care Team (Late st Contact Info) Description 04/25/2021 Documentation Only INTERFACED REPORT Unknown, Provider Social History Tobacco Use Types Packs/Day Years Used Date Smoking Tobacco: Never Assessed PHQ-2 Answer Date Recorded PHQ-2 Score 1 01/04/2024 Adolescent Education Answer Date Record ed Getting School Help Needed Not on file 04/30 Comments No Sex and Gender Information Value Date Recorded Sex Assigned at Female 05/09/2021 12:24 PM CDT Legal Sex Female 3:37 AM AT HOME INDEPENDENT CALL CENTER AGENT Gender Identity Female 05/09/2021 12:24 PM CDT [...] filedocumented in this encounter Additional Health Concerns Infection Onset Date Last Indicated Resolved Time Rule Out COVID-19 08/18/2021 08/18/2021 08/19/2021 2:32 AM AT HOME INDEPENDENT CALL CENTER AGENT Rule Out COVID-19 11/09/2021 11/09/2021 11/10/2021 12:00 PM CDT documented as of this encounter Care Teams Credit Card Clerk Relationship Specialty Start Date End Date No Ref-Primary, Physician PCP - General 06/06/20 05/26/21 [facility] - [address] [address] PCP - General 05/27/21 05/29/21 Monika Escobar PA-C [address] [place] [address] PCP - General Family Medicine 05/30/21 Davida Triana MD [facility] [place] [address] Referring Physician basket grader 06/15/21 Monika High PA-C [address] [place] [address] Physician Dry Starch Operator Dermatology 06/15/21 Monika Escobar PA-C [address] [place] [address] Assigned PCP 05/20/21 Davida Triana MD [address] [place] [address] Assigned OBGYN Provider 06/19/21 3 Monika High, PA-C [address] [place] [address] Assigned Surgical Provider 09/18/21 Kylie Liu MD [address] [address] Assigned OBGYN Provider 03/07/24 Chris Denise MD [address] [address] Assigned OBGYN Provider 08/07/24 documented as of this encounter
--- OUTSIDE RECORDS SUMMARY | 2024-12-01 18:29 | XMS_ITS | Encounter Summary ---
Author Organization [facility] Address [address] [place] [address] Care Team Providers Care Drug Room Clerk Name Role Phone Monika Escobar PA-C Primary Care Provider [phone] Davida Triana MD Unavailable [phone] Monika High PA-C Unavailable [phone] Monika Escobar PA-C Unavailable [phone] Monika High PA-C Unavailable [phone] Kylie Liu MD Unavailable [phone] Chris Denise MD Unavailable [phone] Encounter Details Date Type Department Care Team (Late st Contact Info) Description 07/05/2023 [facility] [address] [address] Lita Wilson Social History Tobacco Use Types Packs/Day Years Used Date Smoking Tobacco: Never Smokeless Tobacco: Never Alcohol Use Standard Drinks/Week Comments Yes 0 (1 standard drink = 0.6 oz pur e alcohol) social, once per month PHQ-2 Answer Date Recorded PHQ-2 Score 2 12/08/2022 Adolescent Education Answer Date Record ed Getting School Help Needed Not on file 04/30 Comments No Sex and Gender Information Value Date Recorded Sex Assigned at Female 05/09/2021 12:24 PM CDT 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 Gender Identity Female 05/09/2021 12:24 PM CDT Sexual Orientation Straight 05/09/2021 12 :24 PM CDT documented as of this encounter Plan of Treatment Not on file documented as of this encounter Visit Diagnoses Not on filedocumented in this encounter Additional Health Concerns Assessment Noted Time PHQ-9 Depression Total Score: 9 12/09/19 23 8:37 AM CDT documented as of this encounter Care Teams Drug Room Clerk Relationship Specialty Start Date End Date Monika Escobar PA-C [address] [place] [address] PCP - General Family Medicine 05/30/21 Davida Triana MD [address] [address] Referring Physician top edge beveler 06/15/21 Monika High PA-C [address] [place] [address] Physician Point Of Sale Associate Dermatology 06/15/21 Monika Escobar PA-C [address] [place] [address] Assigned PCP 05/20/21 Monika High PA-C [address] [place] [address] Assigned Surgical Provider 09/18/21 Kylie Liu MD [address] [address] Assigned OBGYN Provider 03/07/24 Chris Denise MD [address] [place] [address] Assigned OBGYN Provider 08/07/24 documented as of this encounter
--- OUTSIDE RECORDS SUMMARY | 2024-12-01 18:29 | XMS_ITS | Encounter Summary ---
Author Organization [facility] Address [address] [place] [address] Care Team Providers Care Slot Shift Supervisor Name Role Phone Monika Escobar PA-C Primary Care Provider Davida Triana MD Unavailable [phone] Monika High PA-C Unavailable [phone] Monika Escobar PA-C Unavailable [phone] Davida Triana MD Unavailable [phone] Monika High PA-C Unavailable [phone] Kylie Liu MD Unavailable Chris Denise MD Unavailable [phone] Encounter Details Date Type Department Care Team (Late st Contact Info) Description 08/18/2021 Documentation Only INTERFACED REPORT Unknown, Provider Social [...] PM CDT 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 Gender Identity Female 05/09/2021 12:24 PM CDT [...] Out COVID-19 08/18/2021 08/18/2021 08/19/2021 2:32 AM GLASS INSTALLER Rule Out COVID-19 11/09/2021 11/09/2021 11/10/2021 12:00 PM CDT Assessment Noted Time PHQ-9 Depression Total Score: 4 05/31/20 21 7:30 AM GLASS INSTALLER documented as of this encounter Care Teams Slot Shift Supervisor Relationship Specialty Start Date End Date Monika Escobar PA-C [address] [place] [address] PCP - General Family Medicine 05/30/21 Davida Triana MD [address] [place], [place] [address] Referring Physician railroad baggage porter 06/15/21 Monika High PA-C [address] [place] [address] Physician Heel Wheeler Dermatology 06/15/21 Monika Escobar PA-C [address] [place] [address] Assigned PCP 05/20/21 Davida Triana MD [address] [place] [address] Assigned OBGYN Provider 06/19/21 3 Monika High PA-C [address] [place] [address] Assigned Surgical Provider 09/18/21 Kylie Liu MD [address] [address] Assigned OBGYN Provider 03/07/24 Chris Denise MD [address] [address] Assigned OBGYN Provider 08/07/24 documented as of this encounter
--- OUTSIDE RECORDS SUMMARY | 2024-12-01 18:29 | XMS_ITS | Encounter Summary ---
Author Organization [facility] Address [address] [place] [address] Care Team Providers Care Sr. Media Manager Name Role Phone Monika Escobar PA-C Primary Care Provider Davida Triana MD Unavailable [phone] Monika High PA-C Unavailable [phone] Monika Escobar PA-C Unavailable [phone] Davida Triana MD Unavailable [phone] Monika High PA-C Unavailable [phone] Kylie Liu MD Unavailable [phone] Chris Denise MD Unavailable [phone] Encounter Details Date Type Department Care Team (Latest Contact Info) Description 11/23/2021 [facility] Medical Advice [address] [address] Taniya Holman, RN Acne vulgaris (Primary Dx) Social History Tobacco Use Types Packs/Day Years Used Date Smoking Tobacco: Never Smokeless Tobacco: Never Alcohol Use Standard Drinks/Week Comments Yes 0 (1 standard drink = 0.6 oz pur e alcohol) social, once per month PHQ-2 Answer Date Recorded PHQ-2 Total Score (Adult) - Positive if 3 or more points; Administer PHQ-9 if positive 0 11/09/2021 Comments No Sex and Gender Information Value Date Recorded Sex Assigned at Female 05/09/2021 12:24 PM CDT 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 No / Unsure 11/09/2021 10:13 AM CDT documented as of this encounter Miscellaneous Notes * Telephone Encounter - Antonina Delacruz RN - 11/24/2021 3:00 PM CDT Pt notified of Monika sending doxycycline rx to the pharmacy. Antonina Castro RN [facility] [place] [phone] * Telephone Encounter - Monika High PA-C - 11/24/2021 1:38 PM CDT Sent to pharmacy, please notify patient. documented in this encounter Plan of Treatment Not on file documented as of this encounter Visit Diagnoses Diagnosis Acne vulgaris- Primary Other acne documented in this encounter Additional Health Concerns Assessment Noted Time PHQ-9 Depression Total Score: 3 11/11/19 22 7:02 AM CDT documented as of this encounter Care Teams Sr. Media Manager Relationship Specialty Start Date End Date Monika Escobar PA-C [address] [place] [address] PCP - General Family Medicine 05/30/21 Davida Triana MD [address] [place] [address] Referring Physician recovery unit operator 06/15/21 Monika High PA-C [address] [place] [address] Physician Print And Pattern Designer Dermatology 06/15/21 Monika Escobar PA-C [address] [place] [address] Assigned PCP 05/20/21 Davida Triana MD [address] [place] [address] Assigned OBGYN Provider 06/19/21 3 Monika High PA-C [address] [place] [address] Assigned Surgical Provider 09/18/21 Kylie Liu MD [address] [address] Assigned OBGYN Provider 03/07/24 Chris Denise MD [address] [address] Assigned OBGYN Provider 08/07/24 documented as of this encounter
--- OUTSIDE RECORDS SUMMARY | 2024-12-01 18:29 | XMS_ITS | Encounter Summary ---
Author Organization [facility] Address [address] [place] [address] Care Team Providers Care Booking Manager Name Role Phone Monika Escobar PA-C Primary Care Provider [phone] Davida Triana MD Unavailable [phone] Monika High PA-C Unavailable Monika Escobar PA-C Unavailable [phone] Davida Triana MD Unavailable [phone] Monika High PA-C Unavailable Kylie Liu MD Unavailable Chris Denise MD Unavailable [phone] Encounter Details Date Type Department Care Team (Late st Contact Info) Description 08/22/2021 My[facility] Medical Advice [facility] [address] [address] Monika High PA-C [address] [place] [address] Social History Tobacco Use Types Packs/Day Years Used Date Smoking Tobacco: Never Smokeless Tobacco: Never Alcohol Use Standard Drinks/Week Comments Yes 0 (1 standard drink = 0.6 oz pur e alcohol) social, once per month PHQ-2 Answer Date Recorded PHQ-2 Total Score (Adult) - Positive if 3 or more points; Administer PHQ-9 if positive 1 05/30/2021 Comments No Sex and Gender Information Value Date Recorded Sex Assigned at Female 05/09/2021 12:24 PM CDT 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 Yes 08/18/2021 3:15 PM TOWER EXCAVATOR OPERATOR documented as of this encounter Plan of Treatment Not on file documented as of this encounter Visit Diagnoses Not on filedocumented in this encounter Additional Health Concerns Infection Onset Date Last Indicated Resolved Time Rule Out COVID-19 11/09/2021 11/09/2021 11/10/2021 12:00 PM CDT Assessment Noted Time PHQ-9 Depression Total Score: 4 05/31/20 21 7:30 AM TOWER EXCAVATOR OPERATOR documented as of this encounter Care Teams Booking Manager Relationship Specialty Start Date End Date Monika Escobar PA-C [address] [place] [address] PCP - General Family Medicine 05/30/21 Davida Triana MD [address] [place] [address] Referring Physician mineralogy professor 06/15/21 Monika High PA-C [address] [place] [address] Physician Business Management Specialist Dermatology 06/15/21 Monika Escobar PA-C [address] [place] [address] Assigned PCP 05/20/21 Davida Triana MD [address] [place] [address] Assigned OBGYN Provider 06/19/21 3 Monika High PA-C [address] [place] [address] Assigned Surgical Provider 09/18/21 Kylie Liu MD [address] [address] Assigned OBGYN Provider 03/07/24 Chris Denise MD [address] [address] Assigned OBGYN Provider 08/07/24 documented as of this encounter
--- OUTSIDE RECORDS SUMMARY | 2024-12-01 18:29 | XMS_ITS | Patient Health Record ---
Author Organization [facility] Address [address] [address] Care Team Providers Care Proc Tech Name Role Phone CARROLL BROCK Unavailable [phone] Maria Eugenia IZAGUIRRE, Hien Unavailable Reason For Referral No Information Plan Of Treatment No Information Insurance Providers Payer Name Payer Address Payer Phone Subscriber Number Group Number Insured Name Patient Relationship to Insured Coverage Start Date Coverage End Date [facility] [address] [address] [place], [place] [id number] Olayinka Cole [facility] Child - Insured has Financial Responsibility
--- OUTSIDE RECORDS SUMMARY | 2024-12-01 18:29 | XMS_ITS | Encounter Summary ---
Author Organization [facility] Address [address] [place] [address] Care Team Providers Care Vice Investigator Name Role Phone Monika Escobar PA-C Primary Care Provider [phone] Davida Triana MD Unavailable Monika High PA-C Unavailable Monika Escobar PA-C Unavailable [phone] Davida Triana MD Unavailable [phone] Monika High PA-C Unavailable Kylie Liu MD Unavailable Chris Denise MD Unavailable [phone] Reason for Visit * Reason Onset Date Comments Refill Request 11/08/2021 doxycycline mono hydrate (MONODOX) 100 MG capsule Encounter Details Date Type Department Care Team (Late st Contact Info) Description 11/08/2021 Refill [facility] [address] [address] Monika High PA-C [address] [place], [place] [address] Refill Request (doxycycline monohydrate (MONODOX) 100 MG capsule) Social History Tobacco Use Types Packs/Day Years [...] PM CDT 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 No / Unsure 11/09/2021 10:13 AM CDT documented as of this encounter Miscellaneous Notes * Telephone Encounter - Monika High PA-C - 11/08/2021 3:26 PM CDT I only wanted her on this for 2 months. Was this automated? Please have her stop if possible * Telephone Encounter - Monika Escobar PA-C - 11/08/2021 2:47 PM CDT She is following with dermatology. Will send to them. Monika Escobar PA-C * Telephone Encounter - Shira Crenshaw RN - 11/08/2021 2:26 PM CDT Routing to PCP documented in this encounter Plan of Treatment Not on file documented as of this encounter Visit Diagnoses Diagnosis Acne vulgaris Other acne documented in this encounter Additional Health Concerns Infection Onset Date Last Indicated Resolved Time Rule Out COVID-19 11/09/2021 11/09/2021 11/10/2021 12:00 PM CDT Assessment Noted Time PHQ-9 Depression Total Score: 4 05/31/20 21 7:30 AM COMMISSIONER OF OFFICIALS documented as of this encounter Care Teams Vice Investigator Relationship Specialty Start Date End Date Monika Escobar PA-C [address] [place] [address] PCP - General Family Medicine 05/30/21 Davida Triana MD [address] [place] [address] Referring Physician manager dental 06/15/21 Monika High PA-C [address] [place] [address] Physician Cold Mill Operator Dermatology 06/15/21 Monika Escobar PA-C [address] [place] [address] Assigned PCP 05/20/21 Davida Triana MD [address] [place] [address] Assigned OBGYN Provider 06/19/21 3 Monika High PA-C [address] [place] [address] Assigned Surgical Provider 09/18/21 Kylie Liu MD [address] [address] Assigned OBGYN Provider 03/07/24 Chris Denise MD [address] [facility] [address] [place] [address] Assigned OBGYN Provider 08/07/24 documented as of this encounter
--- OUTSIDE RECORDS SUMMARY | 2024-12-01 18:29 | XMS_ITS | Encounter Summary ---
Author Organization [facility] Address [address] [place] [address] Care Team Providers Care Glue Spreader Name Role Phone Monika Escobar PA-C Primary Care Provider Davida Triana MD Unavailable [phone] Monika High PA-C Unavailable [phone] Monika Escobar PA-C Unavailable [phone] Davida Triana MD Unavailable [phone] Monika High PA-C Unavailable [phone] Kylie Liu MD Unavailable [phone] Chris Denise MD Unavailable [phone] Encounter Details Date Type Department Care Team (Late st Contact Info) Description 01/03/2022 My[facility] Medical Advice [address] [address] Taniya Holman, RN Social History Tobacco Use Types Packs/Day Years [...] PM CDT 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 Gender Identity Female 05/09/2021 12:24 PM CDT Sexual Orientation Straight 05/09/2021 12 :24 PM CDT documented as of this encounter Plan of Treatment Not on file documented as of this encounter Visit Diagnoses Not on filedocumented in this encounter Additional Health Concerns Assessment Noted Time PHQ-9 Depression Total Score: 3 11/11/19 22 7:02 AM CDT documented as of this encounter Care Teams Glue Spreader Relationship Specialty Start Date End Date Monika Escobar PA-C [address] [place] [address] PCP - General Family Medicine 05/30/21 Davida Triana MD [address] [place], [place] [address] Referring Physician casino gaming inspector 06/15/21 Monika High PA-C [address] [place] [address] Physician Paper Processing Machine Helper Dermatology 06/15/21 Monika Escobar PA-C [address] [place] [address] Assigned PCP 05/20/21 Davida Triana MD [address] [place] [address] Assigned OBGYN Provider 06/19/21 3 Monika High PA-C [address] [place] [address] Assigned Surgical Provider 09/18/21 Kylie Liu MD [address], [address] [address] Assigned OBGYN Provider 03/07/24 Chris Denise MD [address] [address] Assigned OBGYN Provider 08/07/24 documented as of this encounter
[2024-12-01 18:32] VITALS: BP 125/82; PULSE 75; RESP 16; TEMP 36.6; O2SAT 98; BMI 26.5
--- NOTE | 2024-12-01 19:45 | ED.GENADULT ---
HPI - General Adult General Date Seen: 12/01/24 Chief complaint: OB/Uterine Contractions Stated complaint: 5-7 weeks Pregent and cramping Time Seen by Provider: 12/01/24 19:24 History of Present Illness HPI narrative: Patient is a 28-year-old young woman here for evaluation of abdominal cramping. She is generally cared for in the [place] system. She was seen in the [place] ER on October 14 and diagnosed with a miscarriage. She was followed in their clinic subsequently and had Cytotec and then had a follow-up appointment with OB Gyne on November 12. A point of care ultrasound at that time demonstrated a normal uterus and endometrium. She presented to the [place] ER on November 25 complaining of abdominal cramping. At that time her HCG was 4000, up from 1000 in clinic on November 12. She had an ultrasound at that time that showed a possible early intrauterine gestational sac but no yolk sac or pole, she had a 2 cm simple cyst adjacent to the left ovary possibly a paraovarian cyst. There were no parts seen in that structure and no other suspicious adnexal masses. She was discharged home with recommended OB follow up, Ob Gyne was consulted at that visit. She return to the ER on November 28 reporting ongoing severe cramping. At that time she had a repeat HCG which was up to 9226, a little more than double 3 days status post her last HCG, consistent with likely an normally progressing . She had a repeat ultrasound at that time which again showed an intrauterine gestational sac without yolk sac. The gestational sac measured 0.7 cm at that time consistent with a gestational age of 5 weeks 2 days. The left ovarian cyst was stable. No suspicious fluid collections and no significant interval change. She was discharged home. She tells me she continues to have these periods of severe cramping in her lower abdomen. These come she says every 1-2 hours and last about 20 minutes. She has never had cramping like this, did not typically have significant cramping with her periods. She has had an okay appetite although she has had some trouble with nausea. No vomiting. No fevers. No urinary symptoms. No vaginal discharge or bleeding. I asked if she was having any anxiety about this given recent miscarriage, she says ?not at all. She says that they refer to this as ?a blood clot so that if they lose it they will not be too attached. She has been taking Tylenol but typically at the onset of cramping. She is wondering if it there is anything stronger she can take. She does have an appointment with OB in [place] on Sunday, the day after tomorrow. Related Data Home Medications ?Medication ?Instructions ?Recorded ?Confirmed fluoxetine 20 mg capsule 60 mg PO DAILY 11/13/23 12/01/24 Allergies Allergy/AdvReac Type Severity Reaction Status Date / Time No Known Drug Allergies Allergy Verified 12/01/24 18:36 Review of Systems Status of ROS: Reports: 10 or more systems reviewed and unremarkable except as noted in History and below [facility] Social History Smoking Status: Never smoker Do you use any of these nicotine containing products: None How often do you have a drink containing alcohol: never AUDIT-C Alcohol total score: 0 Non-prescribed substance use: denies use Exam Narrative: Exam Narrative: Vital signs reviewed In general, alert, nontoxic young woman. She looks comfortable. Head: Normocephalic, atraumatic. Eyes: Sclera clear. Pupils equal and reactive. ENT: Mucous membranes moist. Neck: Supple without adenopathy. Heart: Regular rate and rhythm without murmur. Lungs: Clear. No increased work of breathing, crackles or wheezes. Abdomen: Soft, nontender to palpation. Extremities: Well perfused, pulses intact. No significant edema. Neurologic: Alert, conversant. Speech fluent, face symmetric. Moves all extremities equally. Skin: Warm, dry well perfused. Affect: Normal. Const: Vital Signs, click to edit/add: Vital Signs - 24 hr 12/01/24 18:32 Temperature 97.9 F Pulse Rate [Pulse Oximeter] 75 Respiratory Rate 16 Blood Pressure [Ri ght Upper Arm] 125/82 Pulse Oximetry 98 Oxygen Delivery Me thod Room Air Course Course ED Course: Patient presents with about a week of intermittent cramping. She has been seen in [place] twice, she has had 2 ultrasounds, I do not think another ultrasound is likely to be useful today unless there is significant concerning finding on her beta hCG. Will go ahead and check a quant. I am going to broaden her labs a little bit today as it looks like all she has had checked so far as a hemoglobin and metabolic panel. She did have a urine which was negative, will recheck that today. She has no pain or abdominal tenderness right now, vital signs are normal, discussed with her that I a very well may not have a clear explanation for this, I do not think CT scanning is in her best interest or best interest of the if labs do not suggest anything significantly concerning. Likewise, I would recommend against taking narcotic pain medications given that we do not have a clear explanation for this pain at this time. All of her labs are reassuring, her quant hCG is 25,000, exactly where it should be 72 hours from her last check of 9000. Other labs are normal. Urinalysis is negative. I have reviewed all this with her. I have stressed her that we have no reason to suspect that this is not a normally developing , certainly acknowledge the anxiety she must have around possible miscarriage and she does say that the cramping is reminiscent of the cramps she had before she was diagnosed with her prior miscarriage. We discussed that while we certainly cannot predict what will happen with this , right now everything seems to be going well, and I think it is safe to discharge home with follow-up on Sunday as planned. Return any time if things seem to be changing such as bleeding fevers etcetera. Otherwise I recommended taking Tylenol on a scheduled basis to see if that helps settle things down. Vital Signs Vital signs: Initial Vital Signs Temperature 97.9 F 12/01/24 18:32 Temperature Source Temporal Artery Scan 12/01/24 18:32 Pulse Rate 75 12/01/24 18:32 Respiratory Rate 16 12/01/24 18:32 Blood Pressure 125/82 12/01/24 18:32 Blood Pressure Mean 96 12/01/24 18:32 Blood Pressure Position Sitting 12/01/24 18:32 Pulse Oximetry 98 12/01/24 18:32 Oxygen Delivery Method Room Air 12/01/24 18:32 Vital Signs Temperature 97.9 F 12/01/24 18:32 Pulse Rate 75 12/01/24 18:32 Respiratory Rate 16 12/01/24 18:32 Blood Pressure 125/82 12/01/24 18:32 Pulse Oximetry 98 12/01/24 18:32 Oxygen Delivery Method Room Air 12/01/24 18:32 Temperature 97.9 F 12/01/24 18:32 Pulse Rate 75 12/01/24 18:32 Respiratory Rate 16 12/01/24 18:32 Blood Pressure 125/82 12/01/24 18:32 Pulse Oximetry 98 12/01/24 18:32 Oxygen Delivery Method Room Air 12/01/24 18:32 Medical Decision Making Medical Records Medical records reviewed: Yes I reviewed the patient's medical records Lab Data Lab results reviewed: Yes I reviewed the patient's lab results Labs: Lab Results 12/01/24 12/01/24 Range/Units 19:33 19:43 WBC 10.42 (4.50-11.00) K/uL RBC 4.74 (4.00-5.20) m/uL Hgb 13.7 (12.0-16.0) gm/dL Hct 40.6 (33.0-51.0) % MCV 86 (80-100) fL MCH 29 (26-34) pg MCHC 34 (32-36) gm/dL RDW Coeff of Tavia 12.5 (11.5-15.5) % Plt Count 296 (140-440) K/uL Neut % (Auto) 58.6 (42.0-72.0) % Lymph % (Auto) 35.3 (20-44) % [place] % (Auto) 5.5 (0.0-11.0) % Eos % (Auto) 0.2 (0.0-7.0) % Baso % (Auto) 0.2 (0.0-3.0) % Neut # (Auto) 6.11 (1.7-7.0) K/uL Lymph # (Auto) 3.68 H (0.90-2.90) K/uL [place] # (Auto) 0.60 (0.00-0.90) K/UL Eos # (Auto) 0.02 (0.00-0.50) K/uL Baso # (Auto) 0.02 (0.00-0.30) K/uL Abs Immat Gran (auto) 0.02 (0.00-0.30) K/uL Imm/Tot Granulo (auto) 0.2 % Sodium 136 (135-149) mmol/L Potassium 3.3 L (3.6-5.1) mmol/L Chloride 104 (96-114) mmol/L Carbon Dioxide 23 (20-32) mmol/L Anion Gap 9 (7-15) mEq/L BUN 6 (5-24) mg/dL Creatinine 0.5 (0.5-1.5) mg/dL Estimated Creat Clear 153.43 Estimated GFR 133 ml/min Glucose 85 (60-115) mg/dL Calcium 9.2 (8.4-10.6) mg/dL Total Bilirubin 0.5 (0.1-1.5) mg/dL AST 28 (12-35) U/L ALT 24 (4-35) U/L Alkaline Phosphatase 69 (40-150) U/L Total Protein 7.8 (6.0-8.3) g/dL Albumin 4.6 (3.3-5.0) g/dL HCG, Quant 57573.00 mIU/mL Urine Color Yellow (Yellow) Urine Appearance Clear (Clear) Urine pH 7.0 (5.0-8.5) Ur Specific [place] 1.025 (1.000-1.030) Urine Protein Negative (Negative) Urine Glucose (UA) Negative (Negative) Urine Ketones Negative (Negative) Urine Blood Trace-intact A (Negative) Urine Nitrite Negative (Negative) Urine Bilirubin Negative (Negative) Urine Urobilinogen 2.0 A (0.2-1.0) Ur Leukocyte Esterase Negative (Negative) Urine RBC 0-2 (0-2) Urine WBC 0-2 (0-5) Ur Squamous Epith Cells Few (None-Few) Urine Bacteria None (None) Discharge Plan Discharge Clinical Impression: Abdominal cramping Patient Disposition: Home, Self-Care Condition: Stable Instructions: Abdominal Pain in (ED) Additional Instructions: Follow-up on Sunday as planned with your OB Clinic. Here HCG today is 25,010, up from 9200 on the . It is rising appropriately for normal . I checked complete blood counts, electrolytes, kidney function, liver function, all of these tests are normal. Your urinalysis is also normal today, there is no evidence of urinary tract infection or bacteria. Overall, this is all very reassuring. If you have new symptoms such as bleeding, fevers, or severe uncontrolled pain, return any time, otherwise follow-up as discussed. Tylenol 1000 mg 3 times daily for couple days to see if that helps with cramping. Prescriptions: No Action fluoxetine 20 mg capsule 60 mg PO DAILY Follow Up/Referrals: Provider,Not a Local [Primary Care Provider] - Stand Alone Forms: [employer] Info Instructions
[2024-12-01 19:49] LABS: Basophils Absolute Auto 0.02 K/uL (0.00-0.30); Basophils Percent Auto 0.2 % (0.0-3.0); Eosinophils Absolute Auto 0.02 K/uL (0.00-0.50); Eosinophils Percent Auto 0.2 % (0.0-7.0); Hematocrit 40.6 % (33.0-51.0); Hemoglobin* 13.7 gm/dL (12.0-16.0); Immature Granulocytes Abs Auto 0.02 K/uL (0.00-0.30); Immature Granulocytes Pct Auto 0.2 %; Lymphocytes Absolute Auto 3.68 K/uL (0.90-2.90); Lymphocytes Percent Auto 35.3 % (20-44); Mean Corpuscular HGB Conc 34 gm/dL (32-36); Mean Corpuscular Hemoglobin 29 pg (26-34); Mean Corpuscular Volume 86 fL (80-100); Monocytes Percent Auto 5.5 % (0.0-11.0); Neutrophils Absolute Auto 6.11 K/uL (1.7-7.0); Neutrophils Percent Auto 58.6 % (42.0-72.0); Platelet Count* 296 K/uL (140-440); RDW Coefficient of Variation % 12.5 % (11.5-15.5); Red Blood Count 4.74 m/uL (4.00-5.20); White Blood Count* 10.42 K/uL (4.50-11.00)
[2024-12-01 19:50] LABS: Appearance Urine Clear (Clear); Bilirubin Urine Negative (Negative); Blood Urine Trace-intact (Negative); Color Urine Yellow (Yellow); Glucose Urine Negative (Negative); Ketones Urine Negative (Negative); Leukocyte Esterase Urine Negative (Negative); Nitrite Urine Negative (Negative); Protein Urine Negative (Negative); Specific Gravity Urine 1.025 (1.000-1.030)
--- OUTSIDE RECORDS SUMMARY | 2024-12-01 19:51 | XMS_ITS | Clinical Summary ---
Author Organization [facility] Address [address] [place] [address] Care Team Providers Care Slitter And Cutter Operator Name Role Phone Monika Escobar PA-C Primary Care Provider Davida Triana MD Unavailable [phone] Monika High PA-C Unavailable [phone] Monika Escobar PA-C Unavailable [phone] Chris Denise MD Unavailable [phone] Allergies No known active allergies Medications [...] Care Team Description 10/15/2024 MyC Medical Advice [facility] [address] [address] [place] [address] Teresa Tamayo MA 10/15/2024 Telephone [facility] [address] [place] [address] Monika Escobar, PANoaC Panel Management [...] PM CDT Legal Sex Female 3:37 AM TAX ACCOUNTING ASSISTANT Gender Identity Female 05/09/2021 12:24 PM CDT Sexual Orientation Straight 05/09/2021 12 :24 PM CDT Last Filed Vital Signs Vital Sign Reading Time Taken Comments Blood Pressure 118/70 08/04/2024 1:55 PM TAX ACCOUNTING ASSISTANT Pulse 107 11/11/2023 2:03 AM CDT Temperature 36.1 C (97 F) 11/10/2023 11:55 PM CDT Respiratory Rate 20 11/10/2023 11:55 PM CDT Oxygen Saturation 100% 11/11/2023 2:13 AM CDT Inhaled Oxygen Concentration - - Weight 70.4 kg (155 lb 4.8 oz) 08/04/2024 1:55 P M TAX ACCOUNTING ASSISTANT Height 165.1 cm (5' 5) 02/19/2024 [...] component of this testing was completed at [facility]. Stain controls for all stains resulted within this report have been reviewed and show appropriate reactivity. 02/26/2024 10:55 AM CDT SPECIALTY LABS Brushing ENDOCERVICAL STRUCTURE / Unknown Non-blood Collection / Unknown 02/19/2024 11:50 AM CDT 02/19/2024 11:53 AM CDT us Kylie Liu MD LAB - STEPHEN AP Final Res ult [facility] [address] Lab (1st floor, no room number) [place] [address], [facility] Specialty Lab [address] [facility], [address] [place] [address] * CHLAMYDIA TRACHOMATIS PCR (02/19/2024 11:50 AM CDT) Chlamydia trachomatis Negative Negative 02/20/2024 11:54 AM CDT [facility] Comment:A negative result by roller inspector mediated amplification does not preclude the presence of C. trachomatis infection because results are dependent on proper and adequate collection, absence of inhibitors and sufficient rRNA to be detected. Swab CERVIX UTERI STRUCTURE / Unknown Non-blood Collection / Unknown 02/19/2024 11:50 AM CDT 02/19/2024 11:53 AM CDT Kylie Liu MD LAB - MICRO GENERAL ORDER MARIE Final Result [facility] Inf. Diseases Diag. Lab [address] [facility], [address] [place] [address], [facility] from Last 3 Months or Most Recently Relevant to Health Maintenance Insurance BLUE PLUS BLUE PLUS Care Teams Slitter And Cutter Operator Relationship Specialty Start Date End Date Monika Escobar PA-C [address] [place], [place] [id number] PCP - General Family Medicine 05/30/21 Davida Triana MD [address] [place] [address] Referring Physician day spa manager 06/15/21 Monika High PA-C [address] [place] [address] [id number] Physician Learning Support Resource Room Teacher Dermatology 06/15/21 Monika Escobar PA-C [address] [place], [place] [id number] Assigned PCP 05/20/21 Chris Denise MD [address] [address] Assigned OBGYN Provider 08/07/24
--- OUTSIDE RECORDS SUMMARY | 2024-12-01 19:51 | XMS_ITS | Encounter Summary ---
Author Organization [facility] Address [address] [place] [address] Care Team Providers Care Manager Sales Training Name Role Phone Monika Escobar PA-C Primary Care Provider Davida Triana MD Unavailable [phone] Monika High PA-C Unavailable [phone] Monika Escobar PA-C Unavailable [phone] Davida Triana MD Unavailable [phone] Monika High PA-C Unavailable [phone] Kylie Liu MD Unavailable Chris Denise MD Unavailable [phone] Encounter Details Date Type Department Care Team (Late st Contact Info) Description 01/13/2022 MyC Medical Advice [address] [address] Bernard Alaniz MA Social History [...] PM CDT Legal Sex Female 3:37 AM CONSTRUCTION PERSON Gender Identity Female 05/09/2021 12:24 PM CDT [...] documented as of this encounter Care Teams Manager Sales Training Relationship Specialty Start Date End Date Monika Escobar PA-C [address] [place] [address] PCP - General Family Medicine 05/30/21 Davida Triana MD [address] [place] [address] Referring Physician coat joiner lockstitch 06/15/21 Monika High PA-C [address] [place] [address] Physician Combat Systems Officer Dermatology 06/15/21 Monika Escobar PA-C [address] [place] [address] Assigned PCP 05/20/21 Davida Triana MD [address] [place] [address] Assigned OBGYN Provider 06/19/21 6/2/2 3 Monika High PA-C [address] [place] [address] Assigned Surgical Provider 09/18/21 Kylie Liu MD [address] [address] Assigned OBGYN Provider 03/07/24 Chris Denise MD [address] [address] Assigned OBGYN Provider 08/07/24 documented as of this encounter
--- OUTSIDE RECORDS SUMMARY | 2024-12-01 19:51 | XMS_ITS | Encounter Summary ---
Author Organization [facility] Address [address] [place] [address] Care Team Providers Care Alcohol Still Operator Name Role Phone Monika Escobar PA-C Primary Care Provider Davida Triana MD Unavailable [phone] Monika High PA-C Unavailable [phone] Monika Escobar PA-C Unavailable [phone] Davida Triana MD Unavailable [phone] Monika High PA-C Unavailable [phone] Kylie Liu MD Unavailable [phone] Chris Denise MD Unavailable [phone] Encounter Details Date Type Department Care Team (Late st Contact Info) Description 01/20/2022 MyC Medical Advice [address] [address] Laurie Maynard MA Social History [...] PM CDT Legal Sex Female 3:37 AM CASTING MOLDER Gender Identity Female 05/09/2021 12:24 PM CDT [...] documented as of this encounter Care Teams Alcohol Still Operator Relationship Specialty Start Date End Date Monika Escobar PA-C [address] [place] [address] PCP - General Family Medicine 05/30/21 Davida Triana MD [address] [place] [address] Referring Physician family resource management professor 06/15/21 Monika High PA-C [address] [place] [address] Physician Natural Resource Officer Dermatology 06/15/21 Monika Escobar PA-C [address] [place] [address] Assigned PCP 05/20/21 Davida Triana MD [address] [place] [address] Assigned OBGYN Provider 06/19/21 6/2/2 3 Monika High PA-C [address] [place] [address] Assigned Surgical Provider 09/18/21 Kylie Liu MD [address] [address] Assigned OBGYN Provider 03/07/24 Chris Denise MD [address] [address] Assigned OBGYN Provider 08/07/24 documented as of this encounter
--- OUTSIDE RECORDS SUMMARY | 2024-12-01 19:51 | XMS_ITS | Encounter Summary ---
Author Organization [facility] Address [address] [place] [address] Care Team Providers Care Filbert Grower Name Role Phone Monika Escobar PA-C Primary Care Provider [phone] Dvaida Triana MD Unavailable [phone] Monika High PA-C Unavailable [phone] Monika Escobar PA-C Unavailable [phone] Davida Triana MD Unavailable Monika High PA-C Unavailable Kylie Liu MD Unavailable Chris Denise MD Unavailable Reason for Visit * Reason Onset Date Comments Panel Management 01/20/2022 Encounter Details Date Type Department Care Team (Late st Contact Info) Description 01/20/2022 Telephone [facility] [address] [place] [address] Monika Escobar PA-C [address] [place] [address] Panel Management Social History Tobacco [...] PM CDT Legal Sex Female 3:37 AM SERVICE CENTER APPRAISER Gender Identity Female 05/09/2021 12:24 PM CDT [...] Laurie Maynard MA - 07/11/2022 9:04 AM SERVICE CENTER APPRAISER Patient Quality Outreach Patient is due for [...] for provider review: None Laurie Maynard MA ICE CENTER APPRAISER * Telephone Encounter - Laurie Maynard MA [...] asthma yearly physical Type of outreach: Sent [employer] message. Questions for provider review: None Laurie Maynard MA documented in this encounter Plan of Treatment Not on file documented as of this encounter Visit Diagnoses Not on filedocumented in this encounter Additional Health Concerns Assessment Noted Time PHQ-9 Depression Total Score: 6 01/14/20 22 8:43 AM CDT documented as of this encounter Care Teams Filbert Grower Relationship Specialty Start Date End Date Monika Escobar PA-C [address] [place] [address] PCP - General Family Medicine 05/30/21 Davida Triana MD [address] [place] [address] Referring Physician psychological assistant 06/15/21 Monika High PA-C [address] [place] [address] Physician Personnel Research Scientist Dermatology 06/15/21 Monika Escobar PA-C [address] [place] [address] Assigned PCP 05/20/21 Davida Triana MD [address] [place] [address] Assigned OBGYN Provider 06/19/21 3 Monika High PA-C [address] [place] [address] Assigned Surgical Provider 09/18/21 Kylie Liu MD [address] [address] Assigned OBGYN Provider 03/07/24 Chris Denise MD [address] [address] Assigned OBGYN Provider 08/07/24 documented as of this encounter
--- OUTSIDE RECORDS SUMMARY | 2024-12-01 19:51 | XMS_ITS | Encounter Summary ---
Author Organization [facility] Address [address] [place] [address] Care Team Providers Care Analytical Tech Name Role Phone Monika Escobar PA-C Primary Care Provider Davida Triana MD Unavailable [phone] Monika High PA-C Unavailable [phone] Monika Escobar PA-C Unavailable [phone] Chris Denise MD Unavailable [phone] Reason for Visit * Reason Onset Date Comments Panel Management 10/15/2024 Encounter Details Date Type Department Care Team (Late Contact Info) Description 10/15/2024 Telephone [facility] [address] [place] [address] Monika Escobar PA-C [address] [place] [address] Panel Management Social History Tobacco [...] PM CDT Legal Sex Female 3:37 AM MEDICAL STAFF SPECIALIST Gender Identity Female 05/09/2021 12:24 PM CDT Sexual Orientation Straight 05/09/2021 12 :24 PM CDT documented as of this encounter Miscellaneous Notes * Telephone Encounter - Teresa Tamayo MA - 10/15/2024 1:55 PM CDT Patient Quality Outreach Patient is due for the following: Asthma - ACT needed Action(s) Taken: No follow up needed at this time. Type of outreach: Sent [employer] message. Questions for provider review: None Teresa Tamayo MA Chart routed to None. documented in this encounter Plan of Treatment Not on file documented as of this encounter Visit Diagnoses Not on filedocumented in this encounter Additional Health Concerns Assessment Noted Time PHQ-9 Depression Total Score: 11 01/02/ 024 4:16 PM CDT documented as of this encounter Care Teams Analytical Tech Relationship Specialty Start Date End Date Monika Escobar PA-C [address] [place] [address] PCP - General Family Medicine 05/30/21 Davida Triana MD [address] [place] [address] Referring Physician adoption manager 06/15/21 Monika High PA-C [address] [place] [address] Physician Try Out Person Dermatology 06/15/21 Monika Escobar PA-C [address] [place] [address] Assigned PCP 05/20/21 Chris Denise MD [address] [address] Assigned OBGYN Provider 08/07/24 documented as of this encounter
--- OUTSIDE RECORDS SUMMARY | 2024-12-01 19:51 | XMS_ITS | Encounter Summary ---
Author Organization [facility] Address [address] [place] [address]. [place] [address] Care Team Providers Care Design Maintenance Engineer Name Role Phone Monika Escobar PA-C Primary Care Provider [phone] Davida Triana MD Unavailable [phone] Monika High PA-C Unavailable Monika Escobar PA-C Unavailable [phone] Davida Triana MD Unavailable Monika High PA-C Unavailable Kylie Liu MD Unavailable Chris Denise MD Unavailable [phone] Reason for Visit * Reason Comments Medication Refill Encounter Details Date Type Department Care Team (Late st Contact Info) Description 05/03/2022 Refill [facility] [place] [address] [place] [id number] Davida Triana MD [address] [place] [address] Medication Refill Social History Tobacco Use Types [...] PM CDT Legal Sex Female 3:37 AM MATERIAL REQUISITIONER Gender Identity Female 05/09/2021 12:24 PM CDT Sexual Orientation Straight 05/09/2021 12 :24 PM CDT documented as of this encounter Miscellaneous Notes * Telephone Encounter - Jasmine Holcomb RN - 05/03/2022 11:41 AM CDT Prescription approved per [facility] Refill Protocol. Jasmine Holcomb RN documented in this encounter Plan of Treatment Not on file documented as of this encounter Visit Diagnoses Diagnosis Acne, unspecified acne type PMS (premenstrual syndrome) Premenstrual tension syndromes documented in this encounter Additional Health Concerns Assessment Noted Time PHQ-9 Depression Total Score: 6 01/14/20 22 8:43 AM CDT documented as of this encounter Care Teams Design Maintenance Engineer Relationship Specialty Start Date End Date Monika Escobar PA-C [address] [place] [address] PCP - General Family Medicine 05/30/21 Davida Triana MD [address] [place] [address] Referring Physician notary public 06/15/21 Monika High PA-C [address] [place] [address] Physician Gun Tester Dermatology 06/15/21 Monika Escobar PA-C [address] [place] [address] Assigned PCP 05/20/21 Davida Triana MD [address] [place] [address] Assigned OBGYN Provider 06/19/2112/15/ 3 Monika High PA-C [address] [place] [address] Assigned Surgical Provider 09/18/21 Kylie Liu MD [address] [address] Assigned OBGYN Provider 03/07/24 Chris Denise MD [address] [address] Assigned OBGYN Provider 08/07/24 documented as of this encounter
--- OUTSIDE RECORDS SUMMARY | 2024-12-01 19:51 | XMS_ITS | Encounter Summary ---
Author Organization [place] Address [address] [place] [address] Care Team Providers Care Forms Designer Name Role Phone Monika Escobar PA-C Primary Care Provider [phone] Davida Triana MD Unavailable [phone] Monika High PA-C Unavailable [phone] Monika Escobar PA-C Unavailable [phone] Chris Denise MD Unavailable [phone] Encounter Details Date Type Department Care Team (Late st Contact Info) Description 10/15/2024 [facility] [place] [address] [address] Teresa Tamayo MA Social History [...] PM CDT 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 Gender Identity Female 05/09/2021 12:24 PM CDT Sexual Orientation Straight 05/09/2021 12 :24 PM CDT documented as of this encounter Plan of Treatment Not on file documented as of this encounter Visit Diagnoses Not on filedocumented in this encounter Additional Health Concerns Assessment Noted Time PHQ-9 Depression Total Score: 11 01/02/ 024 4:16 PM CDT documented as of this encounter Care Teams Forms Designer Relationship Specialty Start Date End Date Monika Escobar PA-C [address] [place] [address] PCP - General Family Medicine 05/30/21 Davida Triana MD [address] [place] [address] Referring Physician casing blower 06/15/21 Monika High PA-C [address] [place] [address] Physician Marine Electrician Dermatology 06/15/21 Monika Escobar PA-C [address] [place] [address] Assigned PCP 05/20/21 Chris Denise MD [address] [address] Assigned OBGYN Provider 08/07/24 documented as of this encounter
--- OUTSIDE RECORDS SUMMARY | 2024-12-01 19:52 | XMS_ITS | Encounter Summary ---
Author Organization [place] Address [address] [place] [address] Care Team Providers Care Field Nurse Name Role Phone Monika Escobar PA-C Primary Care Provider Davida Triana MD Unavailable [phone] Monika High PA-C Unavailable [phone] Monika Escobar PA-C Unavailable [phone] Monika High PA-C Unavailable [phone] Kylie Liu MD Unavailable [phone] Chris Denise MD Unavailable [phone] Encounter Details Date Type Department Care Team (Late st Contact Info) Description 07/05/2023 [facility] [place] Adv[place] [address] [address] Lita Wilson Social History Tobacco [...] PM CDT 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 Gender Identity Female 05/09/2021 12:24 PM CDT Sexual Orientation Straight 05/09/2021 12 :24 PM CDT documented as of this encounter Plan of Treatment Not on file documented as of this encounter Visit Diagnoses Not on filedocumented in this encounter Additional Health Concerns Assessment Noted Time PHQ-9 Depression Total Score: 9 12/09/19 23 8:37 AM CDT documented as of this encounter Care Teams Field Nurse Relationship Specialty Start Date End Date Monika Escobar PA-C [address] [place] [address] PCP - General Family Medicine 05/30/21 Davida Triana MD [address] [address] Referring Physician income tax return preparer 06/15/21 Monika High PA-C [address] [place] [address] Physician Flag Decorator Dermatology 06/15/21 Monika Escobar PA-C [address] [place] [address] Assigned PCP 05/20/21 Monika High PA-C [address] [place] [address] Assigned Surgical Provider 09/18/21 Kylie Liu MD [address] [address] Assigned OBGYN Provider 03/07/24 Chris Denise MD [address] [place] [address] Assigned OBGYN Provider 08/07/24 documented as of this encounter
--- OUTSIDE RECORDS SUMMARY | 2024-12-01 19:52 | XMS_ITS | Encounter Summary ---
Author Organization [place] Address [address] [place] [address] Care Team Providers Care Back Facer Name Role Phone Monika Escobar PA-C Primary Care Provider Davida Triana MD Unavailable [phone] Monika High PA-C Unavailable [phone] Monika Escobar PA-C Unavailable [phone] Davida Triana MD Unavailable [phone] Monika High PA-C Unavailable [phone] Kylie Liu MD Unavailable [phone] Chris Denise MD Unavailable [phone] Encounter Details Date Type Department Care Team (Late st Contact Info) Description 01/03/2022 [facility] Medical Advice [address] [address] Taniya Holman, RN Social History [...] PM CDT 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 Gender Identity Female 05/09/2021 12:24 [...] documented as of this encounter Care Teams Back Facer Relationship Specialty Start Date End Date Monika Escobar PA-C [address] [place] [address] PCP - General Family Medicine 05/30/21 Davida Triana MD [address] [place], [place] [address] Referring Physician vice president precision market insights 06/15/21 Monika High PA-C [address] [place] [address] Physician Diesel Locomotive Firer/Fireman Dermatology 06/15/21 Monika Escobar PA-C [address] [place] [address] Assigned PCP 05/20/21 Davida Triana MD [address] [place] [address] Assigned OBGYN Provider 06/19/21 3 Monika High PA-C [address] [place] [address] Assigned Surgical Provider 09/18/21 Kylie Liu MD [address], [address] [address] Assigned OBGYN Provider 03/07/24 Chris Denise MD [address] [address] Assigned OBGYN Provider 08/07/24 documented as of this encounter
--- OUTSIDE RECORDS SUMMARY | 2024-12-01 19:52 | XMS_ITS | Encounter Summary ---
Author Organization [facility] Address [address] [place] [address] Care Team Providers Care Abrasives Sales Representative Name Role Phone Monika Escobar PA-C Primary Care Provider Davida Triana MD Unavailable Monika High PA-C Unavailable [phone] Monika Escobar PA-C Unavailable Kylie Liu MD Unavailable Chris Denise MD Unavailable [phone] Encounter Details Date Type Department Care Team (Late st Contact Info) Description 08/04/2024 [facility] Medical Advice [facility] [place] [address] [place] [address] [place] [address] Chris Denise MD [address] [place] [address] Yeast infection of the vagina (Primary Dx) [...] PM CDT 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 Devika Nolan RN TURNER * Telephone Encounter - Chris Denise MD - 08/05/2024 1:09 PM CST Advise Pt that I sent Rx Diflucan to her [facility] in [place]. If her sx's persist 1 week afterthe 2nd dose, then she will need an appt to see what is going on. TURNER * Telephone Encounter - Marly Nolan RN - 08/05/2024 10:44 AM TUBE TURNER Please address the my chart message. Pt believes that she has a yeast infection. Finished monistat 7 day last Sunday and is still having sx. Pt was in for a colp yesterday. Please advise. Devika Nolan RN TURNER documented in this encounter Plan of Treatment Not on file documented as of this encounter Visit Diagnoses Diagnosis Yeast infection of the vagina- Primary Candidiasis of vulva and vagina documented in this encounter Additional Health Concerns Assessment Noted Time PHQ-9 Depression Total Score: 11 01/02/ 024 4:16 PM CDT documented as of this encounter Care Teams Abrasives Sales Representative Relationship Specialty Start Date End Date Monika Escobar PA-C [address] [place] [address] PCP - General Family Medicine 05/30/21 Davida Triana MD [address] [place] [address] Referring Physician paste plant supervisor 06/15/21 Monika High PA-C [address] [place] [address] Physician Repairer Resistance Welding Machines Dermatology 06/15/21 Monika Escobar PA-C [address] [place], [place] [address]25[address] Assigned PCP 05/20/21 Kylie Liu MD [address] [address] Assigned OBGYN Provider 03/07/24 Chris Denise MD [address] [address] Assigned OBGYN Provider 08/07/24 documented as of this encounter
--- OUTSIDE RECORDS SUMMARY | 2024-12-01 19:52 | XMS_ITS | Encounter Summary ---
Author Organization [place] Address [address] [place] [address] Care Team Providers Care Locomotive Electrician Name Role Phone No Ref-Primary, Physician Primary Care Provider 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 Gender Identity Female 05/09/2021 12:24 PM CDT [...] Out COVID-19 08/18/2021 08/18/2021 08/19/2021 2:32 AM SALESPERSON PETS AND PET SUPPLIES Rule Out COVID-19 11/09/2021 11/09/2021 11/10/2021 12:00 PM CDT documented as of this encounter Care Teams Locomotive Electrician Relationship Specialty Start Date End Date No Ref-Primary, Physician PCP - General 06/06/20 05/26/21 [facility] - [address] [address] PCP - General 05/27/21 05/29/21 Monika Escobar PA-C [address] [place] [address] PCP - General Family Medicine 05/30/21 Davida Triana [place] [address] Referring Physician solid waste manager 06/15/21 Monika High PA-C [address] [place] [address] Physician Sock Drier Dermatology 06/15/21 Monika Escobar PA-C [address] [place] [address] Assigned PCP 05/20/21 Davida Triana MD [address] [place] [address] Assigned OBGYN Provider 06/19/21 3 Monika High, PA-C [address] [place] [address] Assigned Surgical Provider 09/18/21 Kylie Liu MD [address] [address] Assigned OBGYN Provider 03/07/24 Chris Denise MD [address] [address] Assigned OBGYN Provider 08/07/24 documented as of this encounter
--- OUTSIDE RECORDS SUMMARY | 2024-12-01 19:52 | XMS_ITS | Encounter Summary ---
Author Organization [place] Address [address] [place] [address] Care Team Providers Care Gas Refrigerator Servicer Name Role Phone Monika Escobar PA-C Primary Care Provider Davida Triana MD Unavailable [phone] Monika High PA-C Unavailable [phone] Monika Escobar PA-C Unavailable [phone] Davida Triana MD Unavailable [phone] Monika High PA-C Unavailable [phone] Kylie Liu MD Unavailable [phone] Chris Denise MD Unavailable [phone] Encounter Details Date Type Department Care Team (Latest Contact Info) Description 11/23/2021 [facility] Medical Advice [address] [address] Taniya Holman, RN Acne vulgaris [...] PM CDT 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 Antonina Castro RN [facility] [place] [phone] * Telephone Encounter - Monika High PA-C [...] documented as of this encounter Care Teams Gas Refrigerator Servicer Relationship Specialty Start Date End Date Monika Escobar PA-C [address] [place] [address] PCP - General Family Medicine 05/30/21 Davida Triana MD [address] [place] [address] Referring Physician graining machine operator 06/15/21 Monika High PA-C [address] [place] [address] Physician Operator Electronic Warfare Dermatology 06/15/21 Monika Escobar PA-C [address] [place] [address] Assigned PCP 05/20/21 Davida Triana MD [address] [place] [address] Assigned OBGYN Provider 06/19/21 3 Monika High PA-C [address] [place] [address] Assigned Surgical Provider 09/18/21 Kylie Liu MD [address] [address] Assigned OBGYN Provider 03/07/24 Chris Denise MD [address] [address] Assigned OBGYN Provider 08/07/24 documented as of this encounter
--- OUTSIDE RECORDS SUMMARY | 2024-12-01 19:52 | XMS_ITS | Encounter Summary ---
Author Organization [place] Address [address] [place] [address] Care Team Providers Care Montessori Paraprofessional Name Role Phone Monika Escobar PA-C Primary Care Provider Davida Triana MD Unavailable [phone] Monika High PA-C Unavailable Monika Escobar PA-C Unavailable Davida Triana MD Unavailable [phone] Monika High PA-C Unavailable Kylei Liu MD Unavailable Chris Denise MD Unavailable [phone] Encounter Details Date Type Department Care Team (Late st Contact Info) Description 08/14/2022 My[facility] Medical Advice [facility] [address] [place] [address] Monika Escobar PA-C [address] [place] [address] Social History Tobacco Use Types [...] PM CDT 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 Gender Identity Female 05/09/2021 12:24 PM CDT Sexual Orientation Straight 05/09/2021 12 :24 PM CDT documented as of this encounter Plan of Treatment Not on file documented as of this encounter Visit Diagnoses Not on filedocumented in this encounter Additional Health Concerns Assessment Noted Time PHQ-9 Depression Total Score: 6 01/14/20 22 8:43 AM CDT documented as of this encounter Care Teams Montessori Paraprofessional Relationship Specialty Start Date End Date Monika Escobar PA-C [address] [place] [address] PCP - General Family Medicine 05/30/21 Davida Triana MD [address] [place], [place] [address] Referring Physician travograph operator 06/15/21 Monika High PA-C [address] [place] [address] Physician Silk Screen Printer Machine Dermatology 06/15/21 Monika Escobar PA-C [address] [place] [address] Assigned PCP 05/20/21 Davida Triana MD [address] [place], [place] [address] Assigned OBGYN Provider 06/19/2112/15/ 3 Monika High PA-C [address] [place] [address] Assigned Surgical Provider 09/18/21 Kylie Liu MD [address] [address] Assigned OBGYN Provider 03/07/24 Chris Denise MD [address] [address] Assigned OBGYN Provider 08/07/24 documented as of this encounter
--- OUTSIDE RECORDS SUMMARY | 2024-12-01 19:52 | XMS_ITS | Clinical Summary ---
Author Organization [facility] Address [address], [place] [address] Care Team Providers Care City Clerk Name Role Phone Saray Reyes MD Primary Care Provider [phone] Source Comments You are receiving this document as you are listed as the primary care provider,follow-up provider, or the patient has been referred to you for consultation.This is in compliance with the Medicare and[facility] Cent[facility] EHR Incentive Program,which states Providers who transition their patient to another setting of careor provider of care or refers their patient to another provider of care shouldprovide summary care record for each transition of care or referral. [employer] Allergies No known active allergies Medications fluoxetine [...] 12/12/2002, 9,05/12/1998,1997 Influenza IIV4 (Quadrivalent ) 0.5mL (25304) 07/25/2013 MCV4 (Menactra) 03/03/2010 MCV4 Menveo 2m.+ (two vial) 04/17/2014 MMR 12/12/2002,12/22/1998 Typhoid (Typhim Vi, IM) 07/30/2015 Varicella 02/05/2008,12/22/1998 Social History Tobacco Use Types Packs/Day Years Used Date Smoking Tobacco: Never Smokeless Tobacco: Never Comments No Sex and Gender Information Value Date Recorded Sex Assigned at Not on file Legal Sex Female 4:30 PM PRESS CLIPPER Gender Identity Not on file Sexual Orientation [...] Insurance [place] [id number] Care Teams City Clerk Relationship Specialty [place] [address] [place] [address] PCP - General 07/22/15
--- OUTSIDE RECORDS SUMMARY | 2024-12-01 19:52 | XMS_ITS | Clinical Summary ---
Author Organization [facility] Address [address] [place] [address] Care Team Providers Care Inspecting Engineer Name Role Phone Unavailable Primary Care Provider [...] Department Care Team Description 12/01/2024 Nurse Triage [facility] [address] [place] [address] Milad Albrecht MD Abdominal Pain 11/28/2024 2:08 AM CDT - 11/28/2024 3:44 AM CDT Emergency [facility] [address] [place] [address] Jamar Olivier MD Early stage of (HC) (Primary Dx); Abdominal cramping Discharge Disposition: Home Self Care 11/28/2024 Travel 11/25/2024 7:51 PM CDT - 11/25/2024 8:45 PM CDT Emergency [facility] [address] [place] [address] Nirmal Ye PA Abdominal cramping (Primary Dx); Early stage of (HC); Left ovarian cyst Discharge Disposition: Home Self Care 11/25/2024 5:10 PM CDT Office Visit [facility] [address] [place] [address] Abdominal Pain/problem (Lower abdominal cramping today. No vaginal bleeding. Is about 6 weeks . ) 11/25/2024 Travel 11/12/2024 1:45 PM CDT Office Visit [facility] [address] [place] [address] Milad Albrecht MD Consult 11/12/2024 Travel 10/16/2024 7:50 AM CDT - 10/16/2024 11:59 PM CDT Hospital Encounter [facility] [address] [place] [address] , unspecified gestational age (HC) 10/16/2024 Telephone [facility] [address] [place] [address] Shruthi Corona, 10/16/2024 Nurse Triage [facility] [address] [place] [address] Milad Albrecht MD Questions 10/16/2024 Telephone [facility] [address] [place] [address] Milad Albrehct MD Results 10/15/2024 Travel 10/14/2024 7:38 AM CDT - 10/14/2024 11:35 AM CDT [facility] [address] [place] [address] Xochitl An, Bleeding in early (HC) (Primary Dx); Threatened (HC) Discharge Disposition: Home Self Care 10/14/2024 Orders Only [address] [place] [address] Shruthi Corona, DO <No scans attached> 10/14/2024 [...] PM CDT Legal Sex Female 5:32 PM MICROBIOLOGY QUALITY CONTROL TECHNICIAN Gender Identity Female 11/25/2024 5:25 PM CDT [...] Description 12/03/2024 3:00 PM CDT Office Visit [address] [address] Milad Albrecht MD [address] [place] [address] 12/05/2024 3:00 PM CDT Phone OB Encounter [facility] [address] [place] [address] 01/02/2025 2:30 PM CDT OB Encounter [facility] [address] [place] [address] Chloe Shruthi Couch, DO [address] [place] [address] Health Maintenance Due Date Last Done Comments [...] HIV-1/O/2, 4TH GENERATION Routine 08/21/2022 4:20 PM MICROBIOLOGY QUALITY CONTROL TECHNICIAN Screen for STD (sexually transmitted disease) from [...] * HEMOGLOBIN (11/28/2024 2:42 AM CDT) Pathologist [facility] [place] HEMOGLOBIN 13.5 12.0 - 16.0 g/dL 11/28/2024 3:00 AM CDT [facility] MCV 87 80 - 100 fL 11/28/2024 3:00 AM CDT [facility] Blood BLOOD SPECIMEN / Unknown Venipuncture / Unknown 11/28/2024 2:42 AM CDT 11/28/2024 2:58 AM CDT us Jamar Olivier MD HEMATOLOGY Final Result [facility] [address] [place] [address] * HCG BETA QUANT, (11/28/2024 2:42 AM CDT) Only the most recent of4 resultswithin the time period is included. HCG BETA QUANT,PREGNANC Y 9,226 mIU/mL 11/28/2024 3:28 AM CDT [facility] Blood BLOOD SPECIMEN / Unknown Venipuncture / Unknown 11/28/2024 2:42 AM CDT 11/28/2024 2:58 AM CDT Narrative [facility] - 11/28/2024 3:28 AM [...] us Jamar Olivier MD CHEMISTRY Final Result [facility] [address] [place] [address] * (ABNORMAL) CBC WITH AUTO DIFFERENTIAL (11/25/2024 5:58 PM CDT) WHITE BLOOD COUNT 9.0 4.5 - 11.0 thou/cu mm 11/25/2024 6:11 PM CDT [facility] RED BLOOD COUNT 4.45 4.00 - 5.20 mil/cu mm 11/25/2024 6:11 PM CDT [facility] HEMOGLOBIN 12.9 12.0 - 16.0 g/dL 11/25/2024 6:11 PM T [facility] HEMATOCRIT 38.4 33.0 - 51.0 % 11/25/2024 6:11 PM T [facility] MCV 86 80 - 100 fL 11/25/2024 6:11 PM CDT [facility] MCH 29.0 26.0 - 34.0 pg 11/25/2024 6:11 PM [facility] MCHC 33.6 32.0 - 36.0 g/dL 11/25/2024 6:11 PM [facility] RDW 12.8 11.5 - 15.5 % 11/25/2024 6:11 PM [facility] PLATELET COUNT 282 140 - 440 thou/cu mm 11/25/2024 6:11 PM [facility] MPV 10.6 6.5 - 11.0 fL 11/25/2024 6:11 PM [facility] % NEUT 52.3 % 11/25/2024 6:11 PM [facility] % LYMPH 40.5 % 11/25/2024 6:11 PM [facility] % MONO 6.7 % 11/25/2024 6:11 PM [facility] % EOS 0.3 % 11/25/2024 6:11 PM [facility] % BASO 0.2 % 11/25/2024 6:11 PM [facility] ABSOLUTE NEUTROPHILS 4.7 1.7 - 7.0 thou/cu mm 11/25/2024 6:11 PM [facility] ABSOLUTE LYMPHOCYTES 3.6(H) 0.9 - 2.9 thou/cu mm 11/25/2024 6:11 PM [facility] ABSOLUTE MONOCYTES 0.6 <0.9 thou/cu mm 11/25/2024 6:11 PM [facility] ABSOLUTE EOSINOPHILS 0.0 <0.5 thou/cu mm 11/25/2024 6:11 PM [facility] ABSOLUTE BASOPHILS 0.0 <0.3 thou/cu mm 11/25/2024 6:11 PM [facility] Blood BLOOD SPECIMEN / Unknown Venipuncture / Unknown 11/25/2024 5:58 PM CDT 11/25/2024 6:07 PM T us Nirmal ACUNA HEMATOLOGY Fin al Result [facility] [address] [place] [address] * RH(D) TYPE (11/25/2024 5:58 PM CDT) Pathologist [facility] [place] RH(D) TYPE Negative 11/25/2024 6:23 PM CDT [facility] BLOOD BANK Blood BLOOD SPECIMEN / Unknown Venipuncture / Unknown 11/25/2024 5:58 PM CDT 11/25/2024 6:07 PM CDT Heath Bradley DO BLOOD BANK Final Resul t Performing Organization Address [facility] de Phone Number [facility] BLOOD BANK [address] [place] [address] * (ABNORMAL) BASIC METABOLIC PANEL (11/25/2024 5:58 PM CDT) Pathologist [facility] [place] SODIUM 137 136 - 145 mmol/L 11/25/2024 6:43 PM [facility] POTASSIUM 3.2(L) 3.5 - 5.1 mmol/L 11/25/2024 6:43 PM [facility] CHLORIDE 101 98 - 107 mmol/L 11/25/2024 6:43 PM [facility] CO2,TOTAL 23 22 - 29 mmol/L 11/25/2024 6:43 PM [facility] ANION GAP 13 5 - 18 11/25/2024 6:43 PM [facility] GLUCOSE 87 70 - 99 mg/dL 11/25/2024 6:43 PM [facility] CALCIUM 9.2 8.8 - 10.4 mg/dL 11/25/2024 6:43 PM [facility] Comment: Reference ranges for this test were updated on 05/20/2024 to reflect our healthy population more accurately. Reference range changes are not retroactively applied to results, but previous results using the same methodology can be interpreted in the context of the new reference range. BUN 7 6 - 20 mg/dL 11/25/2024 6:43 PM [facility] CREATININE 0.52 0.50 - 0.90 mg/dL 11/25/2024 6:43 PM CDT [facility] BUN/CREAT RATIO 13 10 - 20 6:43 PM T [facility] eGFR >90 >90 mL/min/1. 73m2 11/25/2024 6:43 PM CDT [facility] Comment:As of 2021, eG [...] CHEMISTRY Fin al Result Performing Organization Address [facility] Co de Phone Number [facility] [address] [place] [address] * URINALYSIS MICROSCOPIC (11/25/2024 5:47 PM CDT) Only the most recent of2 resultswithin the time period is included. RBC None Seen 0-2, None Seen /HPF 11/25/2024 6:10 PM CDT [facility] WBC 0-2 0-2, 3-5, None Seen /HPF 11/25/2024 6:10 PM [facility] BACTERIA Few None Seen, Rare, Few Bacteria/ HPF 11/25/2024 6:10 PM CDT [facility] EPITHELIAL CELLS Few None Seen, Few Epi/HPF 11/25/2024 6:10 PM CDT [facility] Urine URINE SPECIMEN / Unknown Non-Blood / Unknown 11/25/2024 5:47 PM CDT 11/25/2024 5:58 PM CDT Nirmal ACUNA URINE Fin al Result Performing Organization Address [facility]/ZIP Co de Phone Number [facility] [address] [place] [address] * (ABNORMAL) UA W/ SEDIMENT EXAM REFLEXED PER CRITERIA (11/25/2024 5:47 PM CDT) Only the most recent of2 resultswithin the time period is included. COLOR Yellow Yellow Color 11/25/2024 6:04 PM [facility] CLARITY Clear Clear Clarity 11/25/2024 6:04 PM [facility] SPECIFIC GRAVITY,URINE 1.025 1.010, 1.015, 1.020, 1.025 11/25/2024 6:04 PM [facility] PH,URINE 6.5 6.0, 7.0, 8.0, 5.5, 6.5, 7.5, 8.5 11/25/2024 6:04 PM [facility] UROBILINOGEN, QUALITATIVE Normal Normal EU/dl 11/25/2024 6:04 PM [facility] PROTEIN, URINE Negative Negative mg/dL 11/25/2024 6:04 PM [facility] GLUCOSE, URINE Negative Negative mg/dL 11/25/2024 6:04 PM [facility] KETONES,URINE Negative Negative mg/dL 11/25/2024 6:04 PM [facility] BILIRUBIN,URI NE Negative Negative 11/25/2024 6:04 PM [facility] OCCULT BLOOD,URINE Small(A) Negative 11/25/2024 6:04 PM [facility] NITRITE Negative Negative 11/25/2024 6:04 PM [facility] LEUKOCYTE ESTERASE Negative Negative 11/25/2024 6:04 PM [facility] Urine URINE SPECIMEN / Unknown Non-Blood / Unknown 11/25/2024 5:47 PM CDT 11/25/2024 5:58 PM CDT us Nirmal Ye PA URINE Fin al Result [facility] [address] [place] [address] * (ABNORMAL) URINE (11/25/2024 5:47 PM CDT) ,URIN E Positive(P ositive) Negative 11/25/2024 6:04 PM CDT [facility] Comment:Is Rh typing necessa ry? Urine URINE SPECIMEN / Unknown Non-Blood / Unknown 11/25/2024 5:47 PM CDT 11/25/2024 5:58 PM CDT us Nirmal Ye PA URINE Fin al Result [facility] [address] [place] [address] * TRICHOMONAS, AVILA, AND BACTERIAL VAGINOSIS BY ROSSY (10/14/2024 11:10 AM CDT) AVILA SPECIES Negative Negative 12:53 PM CDT [facility] AVILA GLABRATA Negative Negative 10/15/2024 12:53 PM CDT [facility] TRICHOMONAS VVA Negative Negative 12:53 PM CDT [facility] BACTERIAL VAGINOSIS Negative Negative 10/15/2024 12:53 PM CDT [facility] Other VAGINAL SWAB / Unknown Non-Blood / Unknown 10/14/2024 11:10 AM CDT 10/14/2024 11:15 AM CDT us Xochitl An DO MICROBIOLOGY Final Res ult [facility] [address] [place] [address], [place] * GC CHLAMYDIA TRACH PROBE (10/14/2024 11:10 AM CDT) CHLAMYDIA PROBE Negative 1:11 PM CDT [facility] N GONORRHOEAE PROBE Negative 10/15/2024 1:11 PM CDT [facility] Other ENDOCERVICAL CYTOLOGIC MATERIAL / Unknown Non-Blood / Unknown 10/14/2024 11:10 AM CDT 10/14/2024 11:15 AM CDT us Xochitl An DO MICROBIOLOGY Final Res ult [facility] [address] [place] [address], * CBC W PLT NO DIFF (10/14/2024 8:25 AM CDT) WHITE BLOOD COUNT 4.9 4.5 - 11.0 thou/cu mm 10/14/2024 8:34 AM [facility] RED BLOOD COUNT 4.93 4.00 - 5.20 mil/cu mm 10/14/2024 8:34 AM [facility] HEMOGLOBIN 14.1 12.0 - 16.0 g/dL 10/14/2024 8:34 AM [facility] HEMATOCRIT 43.3 33.0 - 51.0 % 10/14/2024 8:34 AM [facility] MCV 88 80 - 100 fL 10/14/2024 8:34 AM [facility] MCH 28.6 26.0 - 34.0 pg 10/14/2024 8:34 AM [facility] MCHC 32.6 32.0 - 36.0 g/dL 10/14/2024 8:34 AM [facility] RDW 13.1 11.5 - 15.5 % 10/14/2024 8:34 AM [facility] PLATELET COUNT 238 140 - 440 thou/cu mm 10/14/2024 8:34 AM [facility] MPV 10.5 6.5 - 11.0 fL 10/14/2024 8:34 AM [facility] Blood BLOOD SPECIMEN / Unknown Butterfly / Unknown 10/14/2024 8:25 AM CDT 10/14/2024 8:30 AM CDT us Xochitl Stoutvianney DO HEMATOLOGY Final Res ult [facility] [address] [facility] [place] [address] * LC HIV-1/O/2, 4TH GENERATION (08/21/2022 4:20 PM MICROBIOLOGY QUALITY CONTROL TECHNICIAN) [facility] HIV Scr 4th Gen Non Reactive Non Reactive 08/23/2022 2:08 PM MICROBIOLOGY QUALITY CONTROL TECHNICIAN [facility] Comment: HIV Negative HIV-1/HIV-2 antibodies and HIV-1 p24 antigen were NOT detected. There is no laboratory evidence of HIV infection. Blood BLOOD SPECIMEN / Unknown Venipuncture / Unknown 08/21/2022 4:20 PM MICROBIOLOGY QUALITY CONTROL TECHNICIAN 08/21/2022 4:24 PM MICROBIOLOGY QUALITY CONTROL TECHNICIAN Narrative [facility] - 08/23/2022 2:08 PM MICROBIOLOGY QUALITY CONTROL TECHNICIAN Performed at: [address] [place] [id number] Physician Practice Coordinator: Gopal Lassiter MD, Phone: [phone] us Karly Stovall [facility] Final Res ult [facility] ([facility]) [address] [place] [address], from Last 3 Months or Most Recently Relevant to Health Maintenance Insurance [facility]
--- OUTSIDE RECORDS SUMMARY | 2024-12-01 19:52 | XMS_ITS | Encounter Summary ---
Author Organization [facility] Address [address] [place] [address] Care Team Providers Care Derrick Helper Name Role Phone Monika Escobar PA-C Primary Care Provider Davida Triana MD Unavailable [phone] Monika High PA-C Unavailable Monika Escobar PA-C Unavailable [phone] Davida Triana MD Unavailable [phone] Monika High PA-C Unavailable Kylie Liu MD Unavailable Chris Denise MD Unavailable [phone] Encounter Details Date Type Department Care Team (Late st Contact Info) Description 08/22/[address] [facility] [address] [address] Monika High PA-C [address] [place] [address] Social History Tobacco Use Types [...] PM CDT Legal Sex Female 3:37 AM TOE PULLER Gender Identity Female 05/09/2021 12:24 PM CDT Sexual Orientation Straight 05/09/2021 12 :24 PM CDT COVID-19 Exposure Response Date Recorded In the last month, have you been in contact with someone who was confirmed or suspected to have Coronavirus / COVID-19? Yes 08/18/2021 3:15 PM TOE PULLER documented as of this encounter Plan of Treatment Not on file documented as of this encounter Visit Diagnoses Not on filedocumented in this encounter Additional Health Concerns Infection Onset Date Last Indicated Resolved Time Rule Out COVID-19 11/09/2021 11/09/2021 11/10/2021 12:00 PM CDT Assessment Noted Time PHQ-9 Depression Total Score: 4 05/31/20 21 7:30 AM TOE PULLER documented as of this encounter Care Teams Derrick Helper Relationship Specialty Start Date End Date Monika Escobar PA-C [address] [place] [address] PCP - General Family Medicine 05/30/21 Davida Triana MD [address] [place] [address] Referring Physician auricular acupuncturist 06/15/21 Monika High PA-C [address] [place] [address] Physician Market Investigator Dermatology 06/15/21 Monika Escobar PA-C [address] [place] [address] Assigned PCP 05/20/21 Davida Triana MD [address] [place] [address] Assigned OBGYN Provider 06/19/21 3 Monika High PA-C [address] [place] [address] Assigned Surgical Provider 09/18/21 Kylie Liu MD [address] [address] Assigned OBGYN Provider 03/07/24 Chris Denise MD [address] [address] Assigned OBGYN Provider 08/07/24 documented as of this encounter
--- OUTSIDE RECORDS SUMMARY | 2024-12-01 19:52 | XMS_ITS | Encounter Summary ---
Author Organization [facility] Address [address] [place] [address] Care Team Providers Care Car Salter Name Role Phone Monika Escobar PA-C Primary Care Provider [phone] Davida Triana MD Unavailable [phone] Monika High PA-C Unavailable [phone] Monika Escobar PA-C Unavailable [phone] Davida Triana MD Unavailable [phone] Monika High PA-C Unavailable [phone] Kylie Liu MD Unavailable Chris Denise MD Unavailable [phone] Encounter Details Date Type Department Care [...] PM CDT Legal Sex Female 3:37 AM WOMEN SPECIALIST Gender Identity Female 05/09/2021 12:24 PM [...] Out COVID-19 08/18/2021 08/18/2021 08/19/2021 2:32 AM WOMEN SPECIALIST Rule Out COVID-19 11/09/2021 11/09/2021 11/10/2021 12:00 PM CDT Assessment Noted Time PHQ-9 Depression Total Score: 4 05/31/20 21 7:30 AM WOMEN SPECIALIST documented as of this encounter Care Teams Car Salter Relationship Specialty Start Date End Date Monika Escobar PA-C [address] [place] [address] PCP - General Family Medicine 05/30/21 Davida Triana MD [address] [place], [place] [address] Referring Physician sustainability officer 06/15/21 Monika High PA-C [address] [place] [address] Physician Sleep Lab Technician Dermatology 06/15/21 Monika Escobar PA-C [address] [place] [address] Assigned PCP 05/20/21 Davida Triana MD [address] [place] [address] Assigned OBGYN Provider 06/19/21 3 Monika High PA-C [address] [place] [address] Assigned Surgical Provider 09/18/21 Kylie Liu MD [address] [address] Assigned OBGYN Provider 03/07/24 Chris Denise MD [address] [address] Assigned OBGYN Provider 08/07/24 documented as of this encounter
--- OUTSIDE RECORDS SUMMARY | 2024-12-01 19:52 | XMS_ITS | Encounter Summary ---
Author Organization [facility] Address [address] [place] [address] Care Team Providers Care Garage Supervisor Name Role Phone Monika Escobar PA-C Primary Care Provider [phone] Davida Triana MD Unavailable [phone] Monika High PA-C Unavailable [phone] Monika Escobar PA-C Unavailable [phone] Monika High PA-C Unavailable Kylie Liu MD Unavailable [phone] Chris Denise MD Unavailable [phone] Reason for Visit * Reason Onset Date Comments Refill Request 12/20/2022 spironolactone ( ALDACTONE) 100 MG tablet Encounter Details Date Type Department Care Team (Late st Contact Info) Description 12/20/2022 Refill [facility] [address] [address] Monika High PA-C [address] [place] [address] Refill Request (spironolactone (ALDACTONE) 100 [...] PM CDT Legal Sex Female 3:37 AM PROP SAWYER Gender Identity Female 05/09/2021 12:24 PM CDT [...] documented as of this encounter Care Teams Garage Supervisor Relationship Specialty Start Date End Date Monika Escobar PA-C [address] [place] [address] PCP - General Family Medicine 05/30/21 Davida Triana MD [address] [place] [address] Referring Physician specialty transformer assembler 06/15/21 Monika High PA-C [address] [place] [address] Physician Lobsterman Dermatology 06/15/21 Monika Escobar PA-C [address] [place] [address] Assigned PCP 05/20/21 Monika High PA-C [address] [place] [address] Assigned Surgical Provider 09/18/21 Kylie Liu MD [address] [address] Assigned OBGYN Provider 03/07/24 Chris Denise MD [address] [address] Assigned OBGYN Provider 08/07/24 documented as of this encounter
--- OUTSIDE RECORDS SUMMARY | 2024-12-01 19:52 | XMS_ITS | Encounter Summary ---
Author Organization [facility] Address [address] [place] [address] Care Team Providers Care Bilingual Middle School Teacher Name Role Phone Monika Escobar PA-C Primary Care Provider [phone] Davida Triana MD Unavailable Monika High PA-C Unavailable Monika Escobar PA-C Unavailable [phone] Davida Triana MD Unavailable [phone] Monika High PA-C Unavailable Kylie Liu MD Unavailable Chris Denise MD Unavailable [phone] Reason for Visit * Reason Onset Date Comments Refill Request 11/08/2021 doxycycline mono hydrate (MONODOX) 100 MG capsule Encounter Details Date Type Department Care Team (Late st Contact Info) Description 11/08/2021 Refill [facility] [address] [address] Monika High PA-C [address] [place], [place] [address] Refill Request (doxycycline monohydrate (MONODOX) 100 MG [...] PM CDT Legal Sex Female 3:37 AM DITCHING MACHINE ENGINEER Gender Identity Female 05/09/2021 12:24 PM [...] Total Score: 4 05/31/20 21 7:30 AM DITCHING MACHINE ENGINEER documented as of this encounter Care Teams Bilingual Middle School Teacher Relationship Specialty Start Date End Date Monika Escobar PA-C [address] [place] [address] PCP - General Family Medicine 05/30/21 Dvaida Triana MD [address] [place] [address] Referring Physician international travel consultant 06/15/21 Monika High PA-C [address] [place] [address] Physician Skilled Helper Dermatology 06/15/21 Monika Escobar PA-C [address] [place] [address] Assigned PCP 05/20/21 Davida Triana MD [address] [place] [address] Assigned OBGYN Provider 06/19/21 3 Monika High PA-C [address] [place] [address] Assigned Surgical Provider 09/18/21 Kylie Liu MD [address] [address] Assigned OBGYN Provider 03/07/24 Chris Denise MD [address] [facility] [address] [place] [address] Assigned OBGYN Provider 08/07/24 documented as of this encounter
[2024-12-01 19:53] LABS: Slide Review Reflex No
[2024-12-01 19:59] LABS: RBC Urine 0-2 (0-2); Squamous Epithelial Cell Urine Few (None-Few); WBC Urine 0-2 (0-5)
[2024-12-01 20:01] LABS: Albumin* 4.6 g/dL (3.3-5.0); Chloride* 104 mmol/L (96-114); Sodium* 136 mmol/L (135-149)
[2024-12-01 20:02] LABS: Potassium* 3.3 mmol/L (3.6-5.1)
[2024-12-01 20:04] LABS: Alanine Aminotransferase* 24 U/L (4-35); Alkaline Phosphatase* 69 U/L (40-150); Anion Gap 9 mEq/L (7-15); Aspartate Amino Transferase* 28 U/L (12-35); Bilirubin Total* 0.5 mg/dL (0.1-1.5); Blood Urea Nitrogen* 6 mg/dL (5-24); Carbon Dioxide* 23 mmol/L (20-32); Creatinine* 0.5 mg/dL (0.5-1.5); Est. Creatinine Clearance* 153.43; Estimated Glomerular Filt Rate 133 ml/min; Total Protein* 7.8 g/dL (6.0-8.3)
[2024-12-01 20:05] LABS: Calcium* 9.2 mg/dL (8.4-10.6); Glucose* 85 mg/dL (60-115)
[2024-12-01 21:20] VITALS: BP 114/81; PULSE 82; RESP 18; TEMP 36.6; O2SAT 98
== END 2024-12-01 21:30 | disposition home or self-care (01) ==
PROVIDERS: Emergency Provider Emergency Medicine
DX: O26.891 Other specified pregnancy related conditions, first trimester (principal); R10.9 Unspecified abdominal pain; Z3A.01 Less than 8 weeks gestation of pregnancy
CPT/HCPCS: 36415; 80053; 81001; 84702; 85025; 99283; 99284